=== PATIENT | male | born 1935 | race Caucasian/White ===

== ENCOUNTER → 2017-03-30 | Outpatient (CLI) | payer OTHER, MEDICARE ==
[~2017-03-30] MED LIST: CELLCEPT500 MG PO; COMBIVENT INH; DEMADEX20 MG PO; HYDROCHLOROTHIA25 M1 PO; HYTRIN 5 M5 MG/1 CA1 PO; LEVAQUIN 500 M500 M4 PO; LISINOPRIL10 MG PO; LISINOPRIL20 MG PO; NEURONTIN 300300 M1 PO; NORCO 5-325 TA1 EACH PO; PREDNISONE 10 M10 MG PO; PRILOSEC 20 MG20 MG PO; SIMVASTATIN80 MG PO; TYLENOL325 MG PO; UNICOMPLEX M TA1 TA1 PO; VITAMIN B-12500 MCG PO; VITAMIN E400 UNIT PO
[2017-03-30 10:31] VITALS: BP 165/83; BP 168/80
[2017-03-30 13:02] VITALS: BP 156/78; BP 165/83; BP 171/85
== END ==
LOC: OPONC 06:29
DX: N18.9 Chronic kidney disease, unspecified (principal); D63.1 Anemia in chronic kidney disease
CPT/HCPCS: 91030; 95113

== ENCOUNTER 2017-03-31 17:21 | Inpatient (IN) | payer OTHER, MEDICARE ==
[~2017-03-31] VITALS: Ht 167.6 cm; Wt 112.9 kg
--- NOTE | ~2017-03-31 | HC ---
[facility] [place] [address] CONSULTATION Name: MERY MAYA Room #: 454-P ADM IN M.R.#: [id number] Admission: 03/31/17 Attend Phys: Stew Jaffe MD Discharge: Date of : 35 Report #: [id number] THIS REPORT FOR: //name// CC: [facility] DATE OF SERVICE: 04/01/2017 REASON FOR CONSULTATION: Chronic kidney disease. HISTORY OF PRESENT ILLNESS: This 81-year-old gentleman with known chronic kidney disease, baseline creatinine of about 2 and cortical thinning on ultrasound. 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 After the transfusions, he became short of breath, this worsened, he had somewhat orthopnea. He came to the Emergency Room yesterday, was found to be in volume overload but also had lower lung infiltrates suggestive of possible infection and was admitted. PAST MEDICAL HISTORY: He has diastolic heart failure followed by Dr. Duong. He has had marked fluid overload, has been on high doses of diuretics. He has had previous knee replacements. He has the lymphoma as mentioned, has not had specific treatment for that, he is followed by Dr. Mcdermott. He has also had hypertension. HOME MEDICATIONS: Include gabapentin 300 mg b.i.d., lisinopril 40 mg daily, prednisone 10 mg daily, Protonix 20 mg daily, terazosin 10 mg at bedtime, torsemide 100 mg daily. FAMILY HISTORY: He has a brother with heart disease, previous bypass. SOCIAL HISTORY: No substantial cigarettes or alcohol. REVIEW OF SYSTEMS: GENERAL: He has been feeling reasonably well. EYES: His vision is okay. No trouble there. ENT: Hearing okay, swallows okay. No mouth sores or ulcers. ENDOCRINE: No diabetes or thyroid disease. RESPIRATORY: Easily short-winded with some orthopnea. CARDIAC: He has lower extremity swelling and a diagnosis of diastolic heart failure. No angina or coronary artery disease noted. GASTROINTESTINAL: Currently, no nausea, vomiting, diarrhea or bloody stools. GENITOURINARY: Reasonably good stream, some urinary frequency. NEUROLOGIC: Denies seizure, syncope, stroke or symptoms of peripheral neuropathy. SKIN: No skin rashes, lesions or ulcers currently. [address] [address] CONSULTATION Name: MERY MAYA Room #: 454-P [facility] IN M.R.#: [id number] Admission: 03/31/17 Attend Phys: Stew Jaffe MD Discharge: Date of : 35 Report #: [id number] PHYSICAL EXAMINATION: GENERAL: Elderly gentleman, reasonably comfortable giving a good history. Nasal cannula oxygen in place. SKIN: Unremarkable. SKELETAL: Somewhat obese. HEENT: Extraocular movements are full. Vision intact. No scleral icterus. Hearing intact. Mucous membranes moist. Tongue, buccal mucosa benign. NECK: Supple, no carotid bruits, no lymphadenopathy. CHEST: Shows diminished breath sounds at the bases. HEART: Regular but distant. ABDOMEN: Soft and nontender, without bruits, masses or organomegaly. EXTREMITIES: He has got 3+ peripheral edema. LABORATORY DATA: Urinalysis did show 3+ protein, some white cells and some red cells. Hemoglobin is 9, platelets only 102. Sodium 145, potassium 3.3, chloride 103, bicarbonate 29, BUN 41, creatinine 2.3. ASSESSMENT AND PLAN: 1. Chronic kidney disease. He has some cortical thinning, chronic kidney disease, but also somewhat of an active urinary sediment. For completeness, SONG, complements, ANCA, anti-GBL will all be measured. He may well also have paraprotein disorder. has a known B cell lymphoma and I will check for paraprotein. 2. Diastolic congestive heart failure with volume overload, diuresis indicated. 3. Pulmonary infiltrates with possible pneumonia versus transfusion reaction. 4. Hypertension. I will re-add some losartan. He is on terazosin. 5. Anemia. <ELECTRONICALLY SIGNED> By: Romero Richter MD 04/06/17 0735 [id number] Luciano Nieto MD /nt
--- NOTE | ~2017-03-31 | S ---
[facility] [place] [address] SURGICAL PATH RPT PROCEDURE Name: KVNG ROBIN Room #: 454-P ADM IN M.R.#: [id number] Admission: 03/31/17 Date of : 35 Discharge: Report #: [id number] Path Case #: [id number] PATHOLOGY REPORT COLLECTION DATE: 04/05/2017 RECEIVED DATE: 04/05/2017 SUBMITTING PHYS: Dr. Stew Jaffe OTHER PHYS: Dr. Derrick Sparrow SPECIMEN(S) RECEIVED: A.Lt renal inferior * * * * * * * * * * * * FINAL DIAGNOSIS: Please see next page for scanned image of report submitted by [employer]. (IUV:csd; d/t: 04/08/2017) PATHOLOGIST: Kirstie Palacios M.D. REPORT ELECTRONICALLY SIGNED BY: Kirstie Palacios M.D. DATE/TIME: 04/08/2017 12:31 * * * * * * * * * * * * GROSS PATHOLOGY: The specimen is received in formalin, labeled "Kvng Robin left renal inferior". Received are three needle cores of pale hoffmann soft tissue ranging in length from 0.3 to 1.0 cm, with each measuring 0.1 cm in diameter. The specimen is forwarded to an outside lab for further processing. Also received is a container of Bruce's fixative, labeled "Kvng Robin, left renal inferior". Received is a single needle core of pale hoffmann soft tissue measuring 1.3 cm in length by 0.1 cm in diameter. The specimen is for into an outside lab for direct immunofluorescence studies. (CAA; 04/05/2017) CLINICAL HISTORY: SOB INITIAL CPT CODE(S): A; 89235 [facility] [address], [place] [address] [facility] [address] [place] [address] SURGICAL PATH RPT PROCEDURE Name: KVNG ROBIN Room #: 454-P ADM IN M.R.#: [id number] Admission: 03/31/17 Date of : 35 Discharge: Report #: [id number] Path Case #: [id number] Technical services performed by [facility] at [address] [place] [address]. PROCEDURE REPORT (Order Date: 04/05/2017 00:00) INTERPRETATION: Please see next page for scanned image of report submitted by [employer] job service consultant pathologist, Luciano Nieto(IUV:amj; d/t: 04/08/2017) COMMENT: PATHOLOGIST: Kirstie Palacios M.D. REPORT ELECTRONICALLY SIGNED BY: Kirstie Palacios M.D. DATE/TIME: 04/08/2017 10:22 [facility] [address] [place] [address] PHONE: [phone] DIRECTOR: Ulysses Allison M.D. * * * END OF REPORT * * *
--- NOTE | ~2017-03-31 | S ---
[facility] [place] [address] SURGICAL PATH RPT PROCEDURE Name: KVNG ROBIN Wilmar Room #: 454-P [facility] IN M.R.#: [id number] Admission: 03/31/17 Date of : 35 Discharge: 04/09/17 Report #: [id number] Path Case #: [id number] PATHOLOGY REPORT COLLECTION DATE: 04/08/2017 RECEIVED DATE: 04/09/2017 SUBMITTING PHYS: Dr. Pantera Huddleston-Mynori OTHER PHYS: Dr. Derrick Jaffe SPECIMEN(S) RECEIVED: A.Lt renal bx * * * * * * * * * * * * FINAL DIAGNOSIS: Please see next page for scanned image of report submitted by [employer] pathologist, Shaw Maddox MD (SHA:ruddy; d/t: 04/14/2017) PATHOLOGIST: Hang Mott M.D. REPORT ELECTRONICALLY SIGNED BY: Hang Mott M.D. DATE/TIME: 04/14/2017 16:06 * * * * * * * * * * * * GROSS PATHOLOGY: The specimen is received in formalin labeled "Kvng Robin left renal biopsy". Received are four needle cores of pale hoffmann soft tissue ranging in length from 0.7 to 2.2 cm, with each measuring 0.1 cm in diameter. The specimen is forwarded to an outside laboratory for further processing. Also received is a container of Bruce's fixative, labeled "Kvng Robin left renal biopsy". Received are two needle cores of pink-hoffmann soft tissue measuring 0.7 and 1.4 cm in length, each measuring 0.1 cm in diameter. The specimen is forwarded to outside laboratory for direct immunofluorescence studies. (CAA; 04/09/2017) CLINICAL HISTORY: None provided INITIAL CPT CODE(S): A; 13689 Professional and Technical services performed by [employer], [address], [place] [address]. [place] [address] SURGICAL PATH RPT PROCEDURE Name: KVNG ROBIN Room #: 454-P [facility] IN .R.#: [id number] Admission: 03/31/17 Date of : 35 Discharge: 04/09/17 Report #: [id number] Path Case #: [id number] PROCEDURE REPORT (Order Date: 04/10/2017 00:00) COMMENT: Please see next page for scanned image of report submitted by [employer] new home sales consultant pathologist, Pantera Masrh MD (SHA:ruddy; d/t: 04/14/2017) PATHOLOGIST: Hang Mott M.D. REPORT ELECTRONICALLY SIGNED BY: Hang Mott M.D. DATE/TIME: 04/14/2017 12:44 [facility] [address] [place] [address] PHONE: [phone] DIRECTOR: Ulysses Allison M.D. * * * END OF REPORT * * *
--- NOTE | ~2017-03-31 | H ---
[facility] [place] [address] HISTORY AND PHYSICAL Name: MERY MAYA Room #: 454-P [facility] IN M.R.#: [id number] Admission: 03/31/17 Attend Phys: Stew Jaffe MD Discharge: 04/09/17 Date of : 35 Report #: [id number] THIS REPORT FOR: //name// CC: Stew Meza [facility] DATE OF SERVICE: 03/31/2017 CHIEF COMPLAINT: Shortness of breath and lower extremity swelling. HISTORY OF PRESENT ILLNESS: The patient is an 81-year-old man with multiple medical problems, who was recently diagnosed with congestive heart failure with diastolic dysfunction. The patient also has chronic anemia, transfusion dependent. The patient received 2 units of the PRBC transfusion yesterday. The patient states that he finished receiving blood around 4:00. The patient has had baseline shortness of breath and swelling for 1 month or so. Torsemide dose was increased lately. He went home in stable condition. On the same night, developed shortness of breath, which was slightly worse than baseline. He also reports cough. He had no orthopnea. This morning, cough has worsened, as well as the patient started having sputum production. He came to the Emergency Room. In the ER, his oxygen saturation was in mid 80s. ABG showed pO2 of 68, and normal pCO2. PH was 7.47. Chest x-ray showed bilateral lung infiltrates, as well as pleural effusion. The patient has low grade fever. PAST MEDICAL HISTORY: 1. Chronic kidney disease stage 3. 2. Recently diagnosed congestive heart failure with diastolic dysfunction. Last echo in 02/2016, with ejection fraction of 55%. 3. History of gastrointestinal bleed, details not specified. 4. Hypertension. 5. Dyslipidemia. 6. BPH. 7. Glaucoma. 8. Pancytopenia, transfusion dependent anemia. HOME MEDICATIONS: Gabapentin 300 mg b.i.d., lisinopril 40 mg a day, Protonix 20 mg a day, prednisone 10 mg a day, Zocor 80 mg a day, Hytrin 10 mg at night, torsemide 100 mg a day, vitamin E 400 units a day, and Tylenol as needed. FAMILY HISTORY: Reviewed and not pertinent to the patient's current condition. SOCIAL HISTORY: The patient currently does not smoke cigarettes and does not drink alcohol. [facility] [address] [place] [address] HISTORY AND PHYSICAL Name: MERY MAYA Room #: 454-P DIS IN M.R.#: [id number] Admission: 03/31/17 Attend Phys: Stew Jaffe MD Discharge: 04/09/17 Date of : 35 Report #: [id number] REVIEW OF SYSTEMS: As above in HPI section, all others negative. PHYSICAL EXAMINATION: GENERAL: The patient is an elderly man who is in no apparent distress. VITAL SIGNS: Blood pressure is 188/90, heart rate is 76, respiration is 18, temperature is 99.0. HEENT: Pupils are equal. Eye movements are normal. Oral mucosa is moist. Ear examination is deferred. NECK: The patient has mild JVD. RESPIRATORY: Respiratory sounds are diminished bilaterally. He has no wheezes or crackles. CARDIOVASCULAR: The patient has distant S1 and S2. He has regular rhythm and rate. GASTROINTESTINAL: Abdomen is soft, nondistended and nontender. Bowel sounds are present. The patient has no hepatomegaly or splenomegaly. MUSCULOSKELETAL: The patient has normal range of motion. He has 3+ pitting edema on lower extremities. SKIN: The patient has petechia on feet. Skin is dry and warm. LABORATORY DATA: ABG results as above in HPI section. Basic metabolic profile, electrolytes are essentially normal. Creatinine is 2.4, which is higher than baseline of 2.1 recently. Albumin is 2.9. Liver function tests are otherwise normal. On CBC, hemoglobin is 9.4, white count is 6.4, platelets 98. Chest x-ray shows bilateral infiltrates. On EKG, the patient has no acute findings. ASSESSMENT AND PLAN: An 81-year-old man who presents to the hospital with progressively worsening shortness of breath, bilateral lung infiltrates, cough, as well as swelling, and findings suggestive of volume overload. Given timing of the patient's symptoms, transfusion related acute lung injury is less likely. As noted, the patient received blood transfusion yesterday, that was finished around 4:00. He developed slight worsening of shortness of breath at night, before he went back, and his condition became worse this morning. 1. Suspected healthcare-associated pneumonia. The patient was hospitalized here for pneumonia in November of this year. He will be treated with broad-spectrum antibiotics. Breathing treatments will be continued. We will consult inspector aide for further evaluation. 2. Transfusion related acute lung injury. Less likely, but possible. Supportive care will be continued. 3. Congestive heart failure with diastolic dysfunction, new diagnosis. As noted, about a year ago, ejection fraction was 55%. We will repeat cardiac echo. Diuresis will be continued, and the patient will be reassessed. 4. Acute kidney injury on chronic kidney stage 3. Again, the patient is on large doses of torsemide, 100 mg a day. We will treat the patient with IV Lasix for now. Lisinopril will be discontinued, and the patient will be treated with hydralazine for hypertension. [facility] [place] [address] HISTORY AND PHYSICAL Name: MERY MAYA Room #: 454-P [facility] IN M.R.#: [id number] Admission: 03/31/17 Attend Phys: Stew Jaffe MD Discharge: 04/09/17 Date of : 35 Report #: [id number] 5. Hypertension, elevated blood pressure. We will treat with hydralazine for now. 6. Iatrogenic adrenal insufficiency, the patient is on chronic steroids, that was started on skin lesions. Details are not provided. The patient has been on prednisone since January of this year, and this is being tapered off. Now, the patient is on 10 mg a day. Given the patient's acute illness, will be IV steroids, with rapid taper off as the patient's condition improves. 7. Pancytopenia, suspected myelodysplastic syndrome. As noted, the patient has transfusion dependent anemia, and last blood transfusion was yesterday. 8. Deep venous thrombosis prophylaxis. We will use low dose subcutaneous Lovenox. <ELECTRONICALLY SIGNED> By: Stew Jaffe MD 04/11/17 1744 [id number] Stew Jaffe MD /nt
--- NOTE | ~2017-03-31 | HC ---
[facility] [place] [address] CONSULTATION Name: MERY MAYA Room #: 454-P ADM IN M.R.#: [id number] Admission: 03/31/17 Attend Phys: Stew Jaffe MD Discharge: Date of : 35 Report #: [id number] THIS REPORT FOR: //name// CC: Stew Sparrow PRIMARY PHYSICIAN: Derrick Sparrow MD REASON FOR CONSULTATION: Dyspnea and hypoxia. HISTORY OF PRESENT ILLNESS: The patient is an 81-year-old white male who was brought to the emergency room with dyspnea. He has been admitted for possible transfusion related acute lung injury. A pulmonary consultation was requested. The patient has been recently found to have lymphoma following a bone marrow biopsy. He has now received chemotherapy. He has been followed by Dr. Mcdermott. Prior to that, he was found to be cytopenic, which led to the bone marrow biopsy. The patient has been dealing with anemia. Yesterday, he was given 2 units of packed RBCs. He felt fine and was subsequently sent home. Later on that evening, he developed increasing dyspnea and presented to emergency room. Chest x-ray revealed small bilateral pleural effusions, slightly greater on the left; cardiomegaly; small lung volumes. The patient, aside from dyspnea, denies any febrile illness, chills, chest pain, or productive cough. PAST MEDICAL HISTORY: As mentioned above, lymphoma from a recent bone marrow biopsy; cytopenia with anemia, undergone recent transfusion; diastolic dysfunction; recent echocardiogram performed in February 2016 showed ejection fraction of 55%, he is going to get another echocardiogram at this moment; chronic kidney disease; history of GI bleed; hypertension; dyslipidemia; and benign prostatic hypertrophy. PAST SURGICAL HISTORY: As mentioned above. It also includes bilateral knee replacement, bladder biopsy, hemorrhoidectomy, and multiple skin cancer resections. ALLERGIES: None to medications. HOME MEDICATIONS: Include vitamin E supplements, Tylenol, simvastatin, Neurontin, Hytrin, omeprazole, multivitamins, Demadex, prednisone 10 mg once a day, and lisinopril. FAMILY HISTORY: Notable for CVA in father who at the age of 78 and [facility] [address] [place] [address] CONSULTATION Name: MERY MAYA Room #: 454-P [facility] IN .R.#: [id number] Admission: 03/31/17 Attend Phys: Stew Jaffe MD Discharge: Date of : 35 Report #: [id number] mother at the age of 79, she had diabetes. SOCIAL HISTORY: and lives with his , again no history of tobacco or alcohol use. REVIEW OF SYSTEMS: As mentioned above. Otherwise notable for edema involving the lower extremities for the past month. Otherwise, 10-point system review negative. PHYSICAL EXAMINATION: GENERAL: He is awake, alert, in no apparent distress. VITAL SIGNS: Temperature is 97.5 degrees Fahrenheit, pulse is 90, respiratory rate is 20, blood pressure 168/90 mmHg, and saturation 94%. HEENT: Normocephalic, atraumatic. NECK: Supple, without lymphadenopathy or thyromegaly. CHEST: Breath sounds are fair, few scattered crackles in the bases. CARDIOVASCULAR: Heart sounds are distant. No obvious murmurs or gallops. Pulses are 2+/4+ bilaterally. ABDOMEN: Obese, soft, nontender, no organomegaly or masses felt. GENITOURINARY: Deferred. RECTAL: Deferred. EXTREMITIES: Remarkable for 2+/4+ bilateral pretibial edema bilaterally. No cyanosis or clubbing. LABORATORY DATA: Chest x-ray as mentioned above is showing small bilateral pleural effusions, cardiomegaly, mild atelectasis, this is new from his prior chest x-rays. Sodium 145, potassium 3.3, chloride 103, CO2 is 29, creatinine is 2.3, BUN is 40. His baseline creatinine appears to be around 2. Albumin 2.9. Arterial blood gas revealed pH 7.47, pCO2 of 42, pO2 of 68 on 3 liters of O2. WBC is 6400, platelets are reduced at 98,000, no evidence of bandemia. IMPRESSION: 1. Acute hypoxic respiratory failure in this 81-year-old white male. Chest x-ray shows small bilateral pleural effusions along with cardiomegaly. He has edema by examination, present over the past month. He received 2 units of packed red blood cells yesterday. The patient was without febrile illness or chills, etc. Etiology is likely related to volume overload with his recent blood transfusion. Transfusion related acute lung injury is felt to be less likely. Pneumonia is possible, though also less likely given the absence of febrile illness, leukocytosis, or bandemia, no productive cough. 2. Recent diagnosis of lymphoma via bone marrow biopsy. The patient has had trouble with chronic anemia and cytopenia. 3. Suspect acute on chronic diastolic heart failure, echocardiogram is being performed at present. Prior echocardiogram showed ejection fraction of 55%. Agree with diuresis. [address] [address] CONSULTATION Name: MERY MAYA Room #: 454-P ADM IN M.R.#: [id number] Admission: 03/31/17 Attend Phys: Stew Jaffe MD Discharge: Date of : 35 Report #: [id number] 4. Acute kidney injury on chronic kidney disease. His baseline creatinine has been around 2, currently is 2.3. We will need to be cautious with the use of RAS inhibitors along with diuresis. RECOMMENDATION: Agree with current care including broad-spectrum antibiotics and diuretics. If the patient continues to be afebrile and chest x-ray shows improvements, I could consider discontinuing antibiotics. Follow renal function closely given his chronic kidney disease while being diuresed. DVT and GI prophylaxis will be addressed. Thank you for this consultation. <ELECTRONICALLY SIGNED> By: Chapo Lerner MD 04/02/17 1135 1107 1411 Chapo Lerner MD /nt
--- NOTE | ~2017-03-31 | 2DMMODE ---
[facility] [place] [address] 2 D/M-MODE ECHOCARDIOGRAM Name: MERY MAYA Wilmar Room #: 454-P ADM IN .R.#: [id number] Admission: 03/31/17 Attend Phys: Stew Jaffe Discharge: Date of : 35 Date of Service: 04/01/17 1202 Report #: [id number] THIS REPORT FOR: //name// APPROVED REPORT Study performed: 04/01/2017 10:35:02 EXAM: Comprehensive 2D, Doppler, and color-flow Echocardiogram Patient Location: Bedside Room #: 454 Blood Pressure: 175/94 mmHg HR: 91 bpm Other Information Study Quality: Good Indications Congestive Heart Failure Dyspnea Hx HRN, DM 2D Dimensions RVDd: 48.08 mm LVEF(%): 43.34 (>50%) IVSd: 13.45 (7-11mm) LVOT Diam: 21.05 (18-24mm) LVDd: 52.02 mm PWd: 12.99 (7-11mm) Ascending Ao: 37.16 (22-36mm) LVDs: 40.82 (25-40mm) Aortic Root: 39.74 mm Will's LVEF: 43.34 % Volumes Left Atrial Volume (Systole) Single Plane 4CH: 87.89 mL Single Plane 2CH: 76.21 mL LA ESV Index: 41.00 mL/m2 Aortic Valve AoV Peak Sreekanth.: 1.64 m/s AO Peak Gr.: 10.77 mmHg LVOT Max P.02 mmHg LVOT Max V: 1.23 m/s SHAW Vmax: 2.60 cm2 Mitral Valve [facility] [address] [place] [address] 2 D/M-MODE ECHOCARDIOGRAM Name: MERY MAYA Room #: 454-P [facility] IN [facility]#: [id number] Admission: 03/31/17 Attend Phys: Stew Jaffe Discharge: Date of : 35 Date of Service: 04/01/17 1202 Report #: [id number] E/A Ratio: 0.6 MV Decel. Time: 135.93 ms MV E Max Sreekanth.: 0.74 m/s MV A Sreekanth.: 1.23 m/s MV PHT: 39.42 ms IVRT: 83.04 ms Pulmonary Valve PV Peak Sreekanth.: 1.01 m/s PV Peak Gr.: 4.06 mmHg Pulmonary Vein P Vein S: 0.85 m/s P Vein A: 0.44 m/s P Vein D: 0.39 m/s P Vein S/D Ratio: 2.18 Tricuspid Valve TR Peak Sreekanth.: 3.03 m/s RAP Estimate: 5.00 mmHg TR Peak Gr.: 36.67 mmHg RVSP: 42.00 mmHg Left Ventricle The left ventricle is normal size. Mild concentric left ventricular hypertrophy. The left ventricular systolic function is normal. The left ventricular ejection fraction is within the normal range. LVEF is 50-55%. Grade I - abnormal relaxation pattern. Right Ventricle The right ventricle is normal size. The right ventricular systolic function is normal. Atria Left atrium is moderately dilated. Right atrium is mildly dilated. Aortic Valve Aortic valve is calcified. Trace aortic regurgitation. There is no aortic valvular stenosis. Mitral Valve There is mitral annular calcification. Mild mitral regurgitation. No evidence of mitral valve stenosis. Tricuspid Valve The tricuspid valve is normal in structure. There is mild tricuspid regurgitation. The right atrial pressure is estimated at 5 mmHg. There is moderate pulmonary hypertension. Estimated PAP of [address] [address] 2 D/M-MODE ECHOCARDIOGRAM Name: EMRY MAYA Room #: 454-P [facility] IN .R.#: [id number] Admission: 03/31/17 Attend Phys: Stew Jaffe Discharge: Date of : 35 Date of Service: 04/01/17 1202 Report #: [id number] Pulmonic Valve The pulmonary valve is normal in structure. Trace pulmonic regurgitation. Great Vessels Aortic root is mildly dilated. IVC is normal in size and collapses >50% with inspiration. Pericardium There is no pericardial effusion. Right pleural effusion noted. <Conclusion> The left ventricle is normal size. LVEF is 50-55%. Left atrium is moderately dilated. Right atrium is mildly dilated. Aortic valve is calcified. Trace aortic regurgitation. There is mitral annular calcification. There is mitral annular calcification. Mild mitral regurgitation. The tricuspid valve is normal in structure. There is mild tricuspid regurgitation. The right atrial pressure is estimated at 5 mmHg. There is moderate pulmonary hypertension. Estimated PAP of 42 mmHg. Trace pulmonic regurgitation. Aortic root is mildly dilated. <ELECTRONICALLY SIGNED> By: Timothy Ridley MD 04/01/17 1202 01 01 Timothy Ridley MD /INF
--- NOTE | ~2017-03-31 | HC ---
[facility] [place] [address] CONSULTATION Name: MERY MAYA Room #: 454-P ADM IN M.R.#: [id number] Admission: 03/31/17 Attend Phys: Stew Jaffe MD Discharge: Date of : 35 Report #: [id number] THIS REPORT FOR: //name// CC: Stew Sparrow REASON FOR CONSULTATION: Shortness of breath. HISTORY OF PRESENT ILLNESS: The patient is an 81-year-old gentleman who is the patient of Dr. Derrick Sparrow. He has a history of hypertension, diabetes, chronic kidney disease and recent progressive shortness of breath with lower extremity edema, abdominal bloating and orthopnea. His history comes from interview with the patient as well as review of hospitalization and outpatient records. 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 He was hospitalized in November with acute kidney injury at which time his evaluation included a ventilation perfusion scan, which demonstrated low probability for pulmonary embolism, a renal Doppler which showed bilateral renal cortical atrophy. His last echocardiogram in February, 1 year ago demonstrated normal left ventricular systolic function and absent valvular heart disease. He has been recently found to be anemic, which initially responded to iron infusions, although anemia recurred. He received 2 units of packed cells several days ago with 80 mg of IV Lasix between the 2 units for a hemoglobin of around 7.0. He has also undergone recent bone marrow biopsy demonstrating indolent lymphoma. Following his blood transfusion, he reports increasing shortness of breath. Home oxygen saturations were in the mid to upper 70s, presented to the emergency department where his hemoglobin was 9.0 and proBNP 21,000. He denies chest heaviness or pressure. He is limited due to exertional breathlessness. No history of palpitations, near syncope or syncope. ALLERGIES: No known drug allergies. MEDICATIONS: Include torsemide, simvastatin 40 mg daily, lisinopril 40 mg daily, prednisone 10 mg daily, Neurontin 300 mg twice daily. PAST MEDICAL HISTORY: Medical records have been reviewed and include a history of hypertension, diabetes, dyslipidemia, nonischemic stress study in February of 2016 with normal ejection fraction, BPH, autoimmune polyneuropathy. He has been on CellCept back in 2013, hiatal hernia, basal cell excision, left knee replacement, right knee replacement. SOCIAL HISTORY: He has never been a smoker. He is , retired from customer service. [address] [address] CONSULTATION Name: MERY MAYA Room #: 454-P [facility] IN [facility]#: [id number] Admission: 03/31/17 Attend Phys: Stew Jaffe MD Discharge: Date of : 35 Report #: [id number] FAMILY HISTORY: Father at age 78 of stroke. Mother at 79 from diabetes. REVIEW OF SYSTEMS: All systems negative except as that noted above. PHYSICAL EXAMINATION: GENERAL: A pleasant gentleman who is mildly dyspneic. VITAL SIGNS: Blood pressure is 175/94, heart rate of 93, temperature is 98.3 degrees, 5 feet 6 inches tall, 249 pounds. HEENT: There are neither xanthelasma, subcutaneous xanthomata, oral mucosal or digital cyanosis or kyphoscoliosis present. CHEST: Reveals diminished breath sounds at both bases. CARDIOVASCULAR: Regular rate and rhythm with normal S1, S2. Jugular venous pressure is elevated. ABDOMEN: Soft, obese and nontender. EXTREMITIES: Reveal 2+ pitting edema. Radial pulses are 2+. NEUROLOGIC: Alert with a nonfocal exam. LABORATORY DATA: Sodium is 145, potassium 2.3. White count 4.9, hemoglobin 9.0, hematocrit 26, platelet count 102. Chest x-ray demonstrates bilateral lung infiltrates and atelectasis. EKG, sinus rhythm, no acute ST or T-wave changes. IMPRESSION: 1. Acute on chronic diastolic heart failure. 2. Anemia. 3. Chronic kidney disease. 4. Polyneuropathy. 5. Recently diagnosed B-cell lymphoma. 6. Pancytopenia. RECOMMENDATIONS: 1. Echocardiogram with Doppler. 2. Intravenous diuretic therapy. 3. Salt restriction. 4. Hold lisinopril for now given advanced kidney disease. I have discussed these issues with the patient and Dr. Sparrow. Further thoughts will be forthcoming based on full completion of the database. I do not suspect an interval ischemic event from his last assessment about a year ago. <ELECTRONICALLY SIGNED> By: Hugo Duong MD, [facility] 04/02/17 0824 0722 1315 Hugo Duong MD, [facility] /nt
--- NOTE | ~2017-03-31 | EKG ---
[place] [address] [facility] [address] ELECTROCARDIOGRAM REPORT Name: MERY MAYA Room #: 454-P ADM IN M.R.#: [id number] Admission: 03/31/17 Attend Phys: Stew Jaffe MD Discharge: Date of : 35 Report #: [id number] THIS REPORT FOR: //name// [facility] ED Test Date: 2017-03-31 Test Time: 17:50:50 Pat Name: MERY MAYA Department: Room: [facility] Gender: M Credit Review Analyst: marj : 1935 Requested By: Luis Felipe Smith Order Number: [id number] MD: Hugo Duong Measurements Intervals [place] Rate: 82 P: 15 ME: 172 QRS: 6 QRSD: 95 T: 31 QT: 363 QTc: 424 Interpretive Statements Sinus rhythm Supraventricular bigeminy Nonspecific ST and T-wave abnormality Compared to ECG 12/21/2016 10:28:45 Atrial premature complex(es) now present T-wave abnormality now present Ventricular premature complex(es) no longer present Electronically Signed On 04-01-2017 7:45:57 CDT by Hugo Duong [email or web address] <ELECTRONICALLY SIGNED> By: Hugo Duong MD, [facility] 04/01/17 0745 1750 1750 Hugo Duong MD, [facility] /EPI
[2017-03-31 17:32] VITALS: BP 178/90
[2017-03-31 17:55] LABS: ABSOLUTE NEUTROPHILS 5.2 thou/uL (1.4-8.2); BASOPHILS 0.4 % (0.0-2.0); EOSINOPHILS 1.6 % (0.0-3.0); HEMATOCRIT 27.5 % (42.0-52.0); HEMOGLOBIN 9.4 gm/dL (14.0-18.0); LYMPHOCYTES 9.5 % (24.0-44.0); MANUAL DIFF NO; MCH 30.5 pg (26.0-34.0); MCHC 34.1 g/dL (28.0-37.0); MCV 89.4 fL (80.0-100.0); PLATELET COUNT 98 thou/uL (150-400); POLYS 80.5 % (36.0-66.0); RBC 3.08 mil/uL (4.50-6.00); RDW 15.2 % (10.5-14.5); WBC 6.4 thou/uL (4.0-11.0)
[2017-03-31 17:57] LABS: ABG SAMPLE TYPE ARTERIAL; HCO3 30.2 mmol/L (22.0-26.0); LACTATE 1.07 mmol/L (0.5-2.0); O2(CT) 12.9 mL/dL (15.0-23.0); O2Hb 91.5 % (92.0-98.0); PCO2 42.2 mmHg (35.0-45.0); PO2 68.8 mmHg (80.0-100.0); pH 7.472 (7.360-7.450); sO2 94.7 % (92.0-98.0); tCO2 31.5 mmol/L (24.0-30.0)
[2017-03-31 18:00] LABS: STICK SITE R.RADIAL
[2017-03-31 18:07] LABS: CALCIUM 8.3 mg/dL (8.5-10.1); CREATININE 2.4 mg/dL (0.7-1.3); POTASSIUM 3.4 mmol/L (3.5-5.1)
[2017-03-31 18:18] LABS: ALBUMIN 2.9 g/dL (3.4-5.0); TOTAL BILIRUBIN 0.9 mg/dL (<0.1-1.0); TOTAL PROTEIN 5.6 g/dL (6.4-8.2); TROPONIN-I 0.05 ng/mL (<0.04-0.07)
[2017-03-31 20:16] VITALS: BP 175/87
[2017-03-31 20:30] VITALS: BP 185/103
[2017-03-31 23:40] VITALS: BP 175/100
[2017-04-01] VITALS (7 sets, daily range): BP systolic 155–175; BP diastolic 75–102
[2017-04-01 00:40] LABS: URINE BILIRUBIN NEGATIVE (Negative); URINE BLOOD 3+ (Negative); URINE COLOR YELLOW; URINE GLUCOSE-RANDOM* NEGATIVE (Negative); URINE KETONES NEGATIVE (Negative); URINE LEUKOCYTES-REFLEX NEGATIVE (Negative); URINE PROTEIN (DIPSTICK) 3+ (Negative); URINE UROBILINOGEN 0.2 E.U./dl (0.2-1.0)
[2017-04-01 00:53] LABS: CASTS None Seen /LPF (None Seen); SQUAMOUS None Seen /LPF (0-3)
[2017-04-01 00:54] LABS: COARSE GRANULAR CASTS 0-3 Few /LPF (None Seen); CRYSTALS None Seen /LPF (None Seen); URINE RBC >20 Many /HPF (0-2); URINE WBC-REFLEX 6-15 Few /HPF (0-5)
[2017-04-01 05:53] LABS: HEMATOCRIT 26.6 % (42.0-52.0); MCH 30.5 pg (26.0-34.0); MCHC 33.8 g/dL (28.0-37.0); MCV 90.3 fL (80.0-100.0); PLATELET COUNT 102 thou/uL (150-400); RBC 2.94 mil/uL (4.50-6.00); RDW 15.2 % (10.5-14.5); WBC 4.9 thou/uL (4.0-11.0)
[2017-04-01 06:05] LABS: CALCIUM 8.3 mg/dL (8.5-10.1); CREATININE 2.3 mg/dL (0.7-1.3); POTASSIUM 3.3 mmol/L (3.5-5.1)
[2017-04-01 06:09] LABS: MANUAL DIFF YES
[2017-04-01 08:47] LABS: ABSOLUTE NEUTROPHILS 4.7 thou/uL (1.4-8.2); PLATELET ESTIMATE NORMAL; TOTAL CELL COUNT 100
[2017-04-01 23:10] LABS: URINE CREATININE-RANDOM* 44.5 mg/dL (Not Estab.); URINE PROTEIN-RANDOM* 291.8 mg/dL (Not Estab.)
[2017-04-02 04:05] VITALS: BP 173/92
[2017-04-02 07:13] VITALS: BP 163/84
[2017-04-02 08:51] LABS: HEMATOCRIT 27.4 % (42.0-52.0); HEMOGLOBIN 9.3 gm/dL (14.0-18.0); MCH 30.1 pg (26.0-34.0); MCHC 33.7 g/dL (28.0-37.0); MCV 89.4 fL (80.0-100.0); RBC 3.07 mil/uL (4.50-6.00); RDW 15.8 % (10.5-14.5); WBC 6.6 thou/uL (4.0-11.0)
[2017-04-02 08:52] LABS: MANUAL DIFF YES
[2017-04-02 09:00] LABS: CALCIUM 8.6 mg/dL (8.5-10.1); CREATININE 2.7 mg/dL (0.7-1.3); PHOSPHORUS 5.7 mg/dL (2.5-4.9); POTASSIUM 3.6 mmol/L (3.5-5.1)
[2017-04-02 09:15] LABS: ABSOLUTE NEUTROPHILS 6.1 thou/uL (1.4-8.2); TOTAL CELL COUNT 100
[2017-04-02 09:16] LABS: ANISOCYTOSIS 1+; PLATELET COUNT 94 thou/uL (150-400)
[2017-04-02 11:27] VITALS: BP 155/94
[2017-04-02 13:13] LABS: ANTI-DNA SCREEN 2 IU/mL (0-9); ANTI-RNP <0.2 AI (0.0-0.9)
[2017-04-02 15:18] VITALS: BP 187/98
[2017-04-02 16:08] LABS: KAPPA FREE LIGHT CHAINS 246.19 mg/L (3.30-19.40); KAPPA/LAMBDA RATIO 22.14 (0.26-1.65); LAMBDA FREE LIGHT CHAINS 11.12 mg/L (5.71-26.30)
[2017-04-02 19:11] VITALS: BP 153/71
[2017-04-03 04:12] VITALS: BP 153/86
[2017-04-03 05:04] LABS: HEMATOCRIT 27.6 % (42.0-52.0); HEMOGLOBIN 9.3 gm/dL (14.0-18.0); MCH 30.4 pg (26.0-34.0); MCHC 33.8 g/dL (28.0-37.0); MCV 89.9 fL (80.0-100.0); PLATELET COUNT 94 thou/uL (150-400); RBC 3.07 mil/uL (4.50-6.00); RDW 15.9 % (10.5-14.5); WBC 7.7 thou/uL (4.0-11.0)
[2017-04-03 05:15] LABS: MANUAL DIFF YES
[2017-04-03 05:18] LABS: APTT 17.2 Seconds (24.5-32.8); PROTIME 10.8 Seconds (9.3-11.4)
[2017-04-03 05:20] LABS: ALBUMIN 2.9 g/dL (3.4-5.0); CALCIUM 8.5 mg/dL (8.5-10.1); CREATININE 2.9 mg/dL (0.7-1.3); PHOSPHORUS 5.5 mg/dL (2.5-4.9); POTASSIUM 4.5 mmol/L (3.5-5.1)
[2017-04-03 07:26] VITALS: BP 149/89
[2017-04-03 08:20] LABS: ABSOLUTE NEUTROPHILS 7.5 thou/uL (1.4-8.2); TOTAL CELL COUNT 100
[2017-04-03 08:21] LABS: ANISOCYTOSIS 1+; POIKILOCYTOSIS SLIGHT; POLYCHROMASIA OCCASIONAL
[2017-04-03 11:39] VITALS: BP 173/106
[2017-04-03 16:37] VITALS: BP 181/78
[2017-04-03 19:29] VITALS: BP 172/79
[2017-04-04 03:57] VITALS: BP 159/85
[2017-04-04 05:29] LABS: HEMATOCRIT 27.7 % (42.0-52.0); HEMOGLOBIN 9.4 gm/dL (14.0-18.0); MCH 30.5 pg (26.0-34.0); MCHC 33.9 g/dL (28.0-37.0); MCV 89.9 fL (80.0-100.0); RBC 3.08 mil/uL (4.50-6.00); RDW 15.8 % (10.5-14.5); WBC 6.1 thou/uL (4.0-11.0)
[2017-04-04 05:47] LABS: CALCIUM 8.7 mg/dL (8.5-10.1); CREATININE 2.9 mg/dL (0.7-1.3); PHOSPHORUS 6.2 mg/dL (2.5-4.9); POTASSIUM 4.3 mmol/L (3.5-5.1)
[2017-04-04 08:44] VITALS: BP 144/85
[2017-04-04 12:31] VITALS: BP 169/70
[2017-04-04 15:56] VITALS: BP 170/65
[2017-04-04 20:00] VITALS: BP 137/71
[2017-04-05] VITALS (10 sets, daily range): BP systolic 108–165; BP diastolic 51–92
[2017-04-05 04:20] LABS: HEMOGLOBIN 9.2 gm/dL (14.0-18.0); MCH 30.6 pg (26.0-34.0); MCHC 33.9 g/dL (28.0-37.0); MCV 90.4 fL (80.0-100.0); RBC 2.99 mil/uL (4.50-6.00); RDW 15.5 % (10.5-14.5); WBC 5.6 thou/uL (4.0-11.0)
[2017-04-05 04:38] LABS: ALBUMIN 2.9 g/dL (3.4-5.0); CALCIUM 8.5 mg/dL (8.5-10.1); CREATININE 2.9 mg/dL (0.7-1.3); POTASSIUM 4.1 mmol/L (3.5-5.1)
[2017-04-06 04:22] VITALS: BP 160/87
[2017-04-06 05:53] LABS: HEMATOCRIT 27.2 % (42.0-52.0); HEMOGLOBIN 9.2 gm/dL (14.0-18.0); MCH 30.7 pg (26.0-34.0); MCHC 33.9 g/dL (28.0-37.0); MCV 90.5 fL (80.0-100.0); RDW 15.7 % (10.5-14.5); WBC 7.5 thou/uL (4.0-11.0)
[2017-04-06 06:11] LABS: ALBUMIN 2.9 g/dL (3.4-5.0); CALCIUM 8.7 mg/dL (8.5-10.1); CREATININE 3.2 mg/dL (0.7-1.3); PHOSPHORUS 7.3 mg/dL (2.5-4.9); POTASSIUM 4.2 mmol/L (3.5-5.1)
[2017-04-06 08:36] VITALS: BP 152/89
[2017-04-06 12:15] VITALS: BP 136/69
[2017-04-06 13:09] LABS: A/G RATIO 1.3 (0.7-1.7); ALBUMIN 2.8 g/dL (2.9-4.4); ALPHA 1 0.4 g/dL (0.0-0.4); ALPHA 2 0.6 g/dL (0.4-1.0); BETA 0.8 g/dL (0.7-1.3); GAMMA 0.3 g/dL (0.4-1.8); M-SPIKE Not Observed g/dL (Not Observed)
[2017-04-06 16:01] VITALS: BP 154/76
[2017-04-06 17:08] LABS: c-ANCA <1:20 titer (Neg:<1:20); p-ANCA <1:20 titer (Neg:<1:20)
[2017-04-06 19:37] VITALS: BP 134/70
[2017-04-07 05:05] VITALS: BP 113/83
[2017-04-07 06:37] LABS: HEMATOCRIT 25.3 % (42.0-52.0); HEMOGLOBIN 8.7 gm/dL (14.0-18.0); MCH 30.9 pg (26.0-34.0); MCHC 34.2 g/dL (28.0-37.0); MCV 90.5 fL (80.0-100.0); RBC 2.8 mil/uL (4.50-6.00); RDW 15.7 % (10.5-14.5); WBC 8.1 thou/uL (4.0-11.0)
[2017-04-07 06:52] LABS: ALBUMIN 2.7 g/dL (3.4-5.0); CALCIUM 8.6 mg/dL (8.5-10.1); CREATININE 3.2 mg/dL (0.7-1.3); PHOSPHORUS 8.3 mg/dL (2.5-4.9); POTASSIUM 4.5 mmol/L (3.5-5.1)
[2017-04-07 07:19] VITALS: BP 132/71
[2017-04-07 11:00] VITALS: BP 142/77
[2017-04-07 15:07] VITALS: BP 135/55
[2017-04-07 20:07] VITALS: BP 120/51
[2017-04-08] VITALS (14 sets, daily range): BP systolic 104–167; BP diastolic 45–83
[2017-04-08 06:15] LABS: HEMATOCRIT 23.6 % (42.0-52.0); MCH 30.8 pg (26.0-34.0); MCHC 33.8 g/dL (28.0-37.0); MCV 91.1 fL (80.0-100.0); PLATELET COUNT 87 thou/uL (150-400); RBC 2.59 mil/uL (4.50-6.00); RDW 15.8 % (10.5-14.5); WBC 7.6 thou/uL (4.0-11.0)
[2017-04-08 06:20] LABS: MANUAL DIFF YES
[2017-04-08 06:31] LABS: ALBUMIN 2.6 g/dL (3.4-5.0); CALCIUM 8.4 mg/dL (8.5-10.1); CREATININE 3.3 mg/dL (0.7-1.3); PHOSPHORUS 7.6 mg/dL (2.5-4.9); POTASSIUM 4.7 mmol/L (3.5-5.1)
[2017-04-08 07:35] LABS: ABSOLUTE NEUTROPHILS 6.4 thou/uL (1.4-8.2); METAMYELOCYTES 2 %; TOTAL CELL COUNT 100
[2017-04-08 07:36] LABS: ANISOCYTOSIS 1+
[2017-04-08 07:37] LABS: OVALOCYTES 1+
[2017-04-09 04:00] VITALS: BP 131/66
[2017-04-09 05:52] LABS: HEMATOCRIT 22.4 % (42.0-52.0); HEMOGLOBIN 7.6 gm/dL (14.0-18.0); MCH 30.4 pg (26.0-34.0); MCHC 33.8 g/dL (28.0-37.0); RBC 2.49 mil/uL (4.50-6.00); WBC 5.8 thou/uL (4.0-11.0)
[2017-04-09 06:05] LABS: CALCIUM 8.2 mg/dL (8.5-10.1); CREATININE 3.4 mg/dL (0.7-1.3); POTASSIUM 4.5 mmol/L (3.5-5.1)
[2017-04-09 07:29] VITALS: BP 146/69
[2017-04-09 10:35] VITALS: BP 146/69
[2017-04-09 11:31] VITALS: BP 129/59
[2017-04-09 12:05] VITALS: BP 146/69
[2017-04-09] MEDS ORDERED: ALDACTONE25 MG PO (13:26)
[2017-04-09] MEDS ORDERED: COZAAR 50 MG TA50 M1 PO (13:26)
[2017-04-09] MEDS ORDERED: AUGMENTIN 875875 MG PO (13:27)
[2017-04-09] MEDS ORDERED: PREDNISONE 10 M10 MG PO (13:27)
[2017-04-09 13:59] VITALS: BP 146/69
== END 2017-04-09 14:46 | disposition home or self-care (01) | DRG 177 ==
LOC: ER 17:21 → 4W 18:43 → EROBS 18:43 → 4W 20:12
PROVIDERS: Hospitalist; Internal Medicine Endocrinology, Diabetes & Metabolism; Internal Medicine Nephrology; Physician Assistant
PROC: 0TB13ZX Excision of Left Kidney, Percutaneous Approach, Diagnostic (ICD-10-PCS; principal; 2017-04-08)
PROC: BT42ZZZ Ultrasonography of Left Kidney (ICD-10-PCS; principal; 2017-04-08)
DX: J15.6 Pneumonia due to other Gram-negative bacteria (principal); I50.33 Acute on chronic diastolic (congestive) heart failure; J96.01 Acute respiratory failure with hypoxia; I13.0 Hypertensive heart and chronic kidney disease with heart failure and stage 1 through stage 4 chronic kidney disease, or unspecified chronic kidney disease; N17.9 Acute kidney failure, unspecified; N18.4 Chronic kidney disease, stage 4 (severe); J95.84 Transfusion-related acute lung injury (TRALI); D61.818 Other pancytopenia; E27.3 Drug-induced adrenocortical insufficiency; C85.10 Unspecified B-cell lymphoma, unspecified site; Z96.653 Presence of artificial knee joint, bilateral; K21.9 Gastro-esophageal reflux disease without esophagitis; E11.22 Type 2 diabetes mellitus with diabetic chronic kidney disease; E78.5 Hyperlipidemia, unspecified; N40.0 Benign prostatic hyperplasia without lower urinary tract symptoms; E11.42 Type 2 diabetes mellitus with diabetic polyneuropathy; H40.9 Unspecified glaucoma; R80.9 Proteinuria, unspecified; R33.9 Retention of urine, unspecified; R31.9 Hematuria, unspecified; Z82.49 Family history of ischemic heart disease and other diseases of the circulatory system; Z79.899 Other long term (current) drug therapy; Z82.3 Family history of stroke; Z83.3 Family history of diabetes mellitus
CPT/HCPCS: 10045; 91030; 95113

== ENCOUNTER → 2017-04-28 | Outpatient (CLI) | payer OTHER, MEDICARE ==
[~2017-04-28] VITALS: Ht 167.6 cm; Wt 104.8 kg
[~2017-04-28] MED LIST changes: +ALDACTONE25 MG PO; +AUGMENTIN 875875 MG PO; +COZAAR 50 MG TA50 M1 PO; +ZESTRIL40 MG PO
[2017-04-28 07:27] VITALS: BP 163/72
[2017-04-28 07:43] LABS: HEMATOCRIT 20.9 % (42.0-52.0); MCH 30.3 pg (26.0-34.0); MCHC 33.6 g/dL (28.0-37.0); MCV 90.3 fL (80.0-100.0); RBC 2.31 mil/uL (4.50-6.00); RDW 16.2 % (10.5-14.5); WBC 6.2 thou/uL (4.0-11.0)
[2017-04-28 07:56] LABS: CALCIUM 8.2 mg/dL (8.5-10.1); CREATININE 5.3 mg/dL (0.7-1.3); POTASSIUM 4.6 mmol/L (3.5-5.1)
[2017-04-28 08:00] LABS: APTT 22.8 Seconds (24.5-32.8); PROTIME 10.7 Seconds (9.3-11.4)
== END ==
LOC: SPEC 06:41
PROVIDERS: Radiology Vascular & Interventional Radiology
DX: C85.90 Non-Hodgkin lymphoma, unspecified, unspecified site (principal); I10 Essential (primary) hypertension; K21.9 Gastro-esophageal reflux disease without esophagitis; K44.9 Diaphragmatic hernia without obstruction or gangrene; I50.9 Heart failure, unspecified; K28.4 Chronic or unspecified gastrojejunal ulcer with hemorrhage; Z96.653 Presence of artificial knee joint, bilateral; Z85.828 Personal history of other malignant neoplasm of skin

== ENCOUNTER 2018-02-09 16:48 | Inpatient (IN) | payer OTHER, MEDICARE ==
[~2018-02-09] VITALS: Ht 167.6 cm; Wt 104.1 kg
--- NOTE | ~2018-02-09 | HC ---
[facility] [place] [address] CONSULTATION Name: MERY MAYA Room #: 236-P ADM IN M.R.#: [id number] Admission: 02/09/18 Attend Phys: Db Grewal MD Discharge: Date of : 35 Report #: [id number] THIS REPORT FOR: //name// CC: Db Sparrow MD DATE OF SERVICE: 02/10/2018 ATTENDING PHYSICIAN: Poli Paiz MD.. CONSULTATION REQUESTED BY: Dr. Burch. REASON FOR CONSULTATION: Febrile neutropenia. HISTORY OF PRESENT ILLNESS: An 82-year-old white man, unwell for several days. Problems started with some significant cough, also some diarrhea. No recent history of antibiotics. History of B cell lymphoma, on chemotherapy several months ago and remains pancytopenic. He has visited with Dr. Mcdermott's office, and medications were administered. Uncertain as to what that might have been. The patient is rather somnolent and hypotensive and to be transferred to the intensive care unit. Cultures were obtained. Chest x-ray has revealed left basilar pneumonia. He is on Rocephin and Zithromax as well as chronic Valtrex for previous history of shingles several months ago. At present, the patient follows simple commands, but most of the information on this patient is gathered from the review of his records and conversation with the patient's . ALLERGIES: None listed. MEDICATIONS: The patient is on treatment with Valtrex 500 mg daily, Rocephin 1 gram IV daily, Zithromax 500 mg daily. He is also receiving cyanocobalamin 1000 mcg p.o. daily, vitamin E 4000 units p.o. daily, multivitamin with iron one daily, torsemide 20 mg daily, lisinopril 40 mg daily, ferrous sulfate 325 mg daily, gabapentin 300 mg b.i.d., terazosin 10 mg at bedtime, guaifenesin 1200 mg b.i.d., intravenous fluids, sodium chloride 1000 mL every 10 hours. Atrovent, albuterol inhalation treatments, p.r.n. acetaminophen, p.r.n. ondansetron, p.r.n. glucose, p.r.n. glucagon, regular insulin. Infusions, pressors consistent of epinephrine, vasopressin, Levophed as needed per protocol. PAST MEDICAL HISTORY:. Chronic kidney disease, being cared for by Dr. Nieto. B-cell lymphoma, under the care of Dr. Erick Mcdermott. No chemotherapy for several months. Immunocompromised host. Diarrhea, must rule out Clostridium difficile colitis in immunocompromised host. Status post Port-A-Cath. Right knee replacement x 2. Left knee replacement. Hypertension. Gastroesophageal reflux disease. Hemorrhoidectomy. Previous peptic [place] [address] CONSULTATION Name: MERY MAYA Room #: 236-P [facility] IN M.R.#: [id number] Admission: 02/09/18 Attend Phys: Db Grewal MD Discharge: Date of : 35 Report #: [id number] removal, hiatal hernia. Has required blood transfusions on account of severe anemia. Congestive heart failure. History of pancytopenia. SOCIAL HISTORY: Used to work for [email or web address], grown children. No tobacco, no alcohol. FAMILY HISTORY: See H and P and records. REVIEW OF SYSTEMS: As above. PHYSICAL EXAMINATION: GENERAL: Chronically ill-appearing, somnolent white man. VITAL SIGNS: Temperature maximum 101.4, BP 96/42, pulse 106-94 per minute, respirations 23. HEENMT: Head normocephalic, atraumatic. Pupils reactive. Arcus cornealis. Mouth: Moist mucous membranes. No thrush. NECK: Supple, no thyromegaly. LUNGS: Basilar crackles, left base. HEART: S1, S2. No gallop or murmur. CHEST: Right-sided Port-A-Cath site looks fine. ABDOMEN: Mild erythema of the abdominal wall. No active lesions of shingles on left lung where he previously had problem. Abdomen without masses, megaly or abnormal tenderness. GENITALIA AND RECTAL: Deferred. EXTREMITIES: No clubbing, cyanosis. NEUROLOGIC: Grossly within normal limits. LABORATORY DATA: Sodium 139, potassium 3.8, BUN 61, creatinine 3.6, glucose 99, albumin 3.3 g/dL. NT-proBNP 431, iron saturation 5%. WBC 1200, hemoglobin 10.3 g/dL and platelets 44,000. The white blood cell count differential revealed 69% neutrophils yesterday. Ferritin 1769. Procalcitonin 2.52. Urinalysis negative. ABGs: PH 7.37, pCO2 of 34, pO2 of 91, bicarbonate 19, lactate 2.21. This set of gases on 2 liters oxygen nasal cannula. Blood cultures negative. Nasal smear negative for influenza A and B. RADIOLOGY EVALUATION: The chest x-ray revealed possible left basilar infiltrate yesterday. Today's chest x-ray revealed possible hiatal hernia, cardiomegaly, Port-A-Cath and possibly left basilar infiltrate. ASSESSMENT: 1. Febrile neutropenia. 2. Possible left pneumonitis. 3. Diarrhea, rule out Clostridium difficile colitis. 4. Acute kidney injury on chronic kidney disease. 5. Pancytopenia. 6. B-cell lymphoma. 7. Encephalopathy secondary to above. [facility] [address] [place] [address] CONSULTATION Name: MERY MAYA Room #: 236-P ADM IN M.R.#: [id number] Admission: 02/09/18 Attend Phys: Db Grewal MD Discharge: Date of : 35 Report #: [id number] 8. Metabolic and lactic acidosis. SUGGESTIONS: Recommend broaden antibiotic spectrum coverage. We will continue Zithromax and discontinue Rocephin, start Zosyn and intravenous vancomycin as well as oral vancomycin for possible C. difficile colitis. Transfer to the intensive care unit per previous consult. Urine for legionella and Streptococcus pneumoniae antigen. MRSA screen. Dr. Burch and Dr. Grewal, thank you for requesting my suggestions in the care of your patient. <ELECTRONICALLY SIGNED> By: Gonzalo Henry MD 02/11/18 0833 1045 1159 Gonzalo Henry MD /nt
--- NOTE | ~2018-02-09 | HC ---
[facility] [place] [address] CONSULTATION Name: MERY MAYA Room #: 236-P ADM IN M.R.#: [id number] Admission: 02/09/18 Attend Phys: Db Grewal MD Discharge: Date of : 35 Report #: [id number] THIS REPORT FOR: //name// CC: Jeffrey Duong MD [facility] Luciano Sparrow MD REQUESTING PHYSICIAN: Poli Paiz M.D. REASON FOR CONSULTATION: Cytopenia. HISTORY OF PRESENT ILLNESS: The patient is a very pleasant 82-year-old gentleman who was admitted for bronchitis with cough and shortness of breath. He denies any fever. He has also had some increased diarrhea, though his bowels can be somewhat loose. No new skin rash, though he does have several ecchymoses. No dysuria. No blood in his urine or stool. PAST MEDICAL HISTORY: Past history is notable for history of B-cell lymphoma found at a bone marrow biopsy of 03/2017. Note that at that time, he had no lymphadenopathy on his CAT scans. He began rituximab and Treanda in 04/2017 and his last dose #6 was given on 09/30/2017. The patient had initially presented with cytopenia and this has persisted. We had been talking about whether to consider a bone marrow biopsy. Past history is also notable for anemia of chronic disease, receiving erythropoietin 120 mcg monthly. Also, history of basal cell skin cancers, history of bladder disorder, history of hypertension, hyperlipidemia, iron-deficiency anemia in the past and received INFeD last year. Also, polyneuropathy. Also had a shingles outbreak in the past, type 2 diabetes and glaucoma. MEDICATIONS: At this time in the hospital currently include terazosin 10 mg at bedtime, gabapentin 300 b.i.d., B12 at 1000 mcg daily, vitamin E 400 units daily, multivitamin with iron 1 tab daily, torsemide 20 mg daily, lisinopril 40 daily, ferrous sulfate 325 daily, valacyclovir 500 mg daily, guaifenesin ER 1200 mg b.i.d., Zithromax 500 mg IV daily, ceftriaxone 1 g daily, hydrocodone p.r.n., albuterol sulfate respiratory therapy every 4 hours while awake, Tylenol p.r.n. and Zofran p.r.n. SOCIAL HISTORY: Unchanged. The patient is retired. PHYSICAL EXAMINATION: VITAL SIGNS: Height is 5 feet 6, 167.6 cm. Weight is 215.6 pounds. [address] [address] CONSULTATION Name: MERY MAYA Room #: 236-P [facility] IN M.R.#: [id number] Admission: 02/09/18 Attend Phys: Db Grewal MD Discharge: Date of : 35 Report #: [id number] pressure is 100/50, O2 sat 93%, respirations 20, pulse 90 and temperature 100.2. It had been up to 101.4 yesterday. HEENT: Oropharynx clear. MOOD: The patient is alert and pleasant. NEUROLOGIC: He is alert, pleasant. Moving all extremities. LUNGS: Has quite a bit of coughing with some rhonchi, very slight wheeze on forced expiration at the end of his cough, none during the early portion. HEART: Regular rate. LYMPHATICS: No enlarged lymph nodes in the supraclavicular, cervical, axillary or inguinal region. ABDOMEN: Obese, nontender. No mass. EXTREMITIES: Without clubbing or cyanosis. There is some edema. LABORATORY DATA: Lab results here notable for a white count of 1.2 with 69% neutrophils, 2% bands, 7% lymphocytes, 21% monocytes with an ANC of 900, hemoglobin at 10.3 and platelets of 44,000. Creatinine at 2.9. Liver functions normal. ASSESSMENT AND PLAN: 1. History of non-Hodgkin's lymphoma, thought to have responded because of initial improvement in blood counts, but now has persistent cytopenia which may have been related to chemotherapy. This could also be from progressive disease, would consider bone marrow biopsy in the near future. 2. Febrile illness with cough, suspect bronchitis. Continue Zithromax and ceftriaxone. Cultures pending. 3. Chronic obstructive pulmonary disease. Continues inhalers. 4. Renal insufficiency, cautious diuretics. 5. Cardiac issues, continues torsemide and lisinopril. 6. Type 2 diabetes. Manage sugars and watch diet. We will follow with you. <ELECTRONICALLY SIGNED> By: Erick Mcdermott MD 02/11/18 0621 0944 1057 Erick Mcdermott MD /nt
--- NOTE | ~2018-02-09 | HC ---
[facility] [place] [address] CONSULTATION Name: MERY MAYA Room #: 363-P ADM IN M.R.#: [id number] Admission: 02/09/18 Attend Phys: Db Grewal MD Discharge: Date of : 35 Report #: [id number] THIS REPORT FOR: //name// CC: Db Sparrow REASON FOR CONSULTATION: Chronic kidney disease. HISTORY OF PRESENT ILLNESS: A well known patient to me, he is an 82-year-old with past medical history of chronic kidney disease with a baseline creatinine of around 2.0. He had a bone marrow biopsy back in 03/2017 and was discovered to have B cell lymphoma. He started on rituximab and Treanda in 04/2017. He finished his chemotherapy in 09/2017. He presented to the hospital, complaining of nonproductive cough, fever with generalized body ache and diarrhea. He was admitted for further evaluation and management. He reported to profuse diarrhea. He was found to have an acute kidney injury with pancytopenia on his presentation. Creatinine was up to 3.6 from a baseline of around 2.0. He was admitted to the ICU with neutropenic isolation precautions and I am being consulted to manage his chronic kidney disease. He previously saw Dr. Nieto and extensive workup has been done for him regarding his kidney issues. Agreement between him and Dr. Nieto was to manage his chronic kidney disease conservatively. PAST MEDICAL HISTORY: 1. B cell lymphoma. 2. Hypertension. 3. Bladder biopsy. 4. Left knee replacement. 5. Right knee replacement. 6. Hemorrhoidectomy. 7. Bone marrow biopsy. 8. Peptic ulcer disease. MEDICATIONS: 1. Simvastatin. 2. Terazosin: 3. Gabapentin. 4. Torsemide. 5. Potassium. 6. Lisinopril. ALLERGIES: No known drug allergies. SOCIAL HISTORY: Denies drug or alcohol abuse. REVIEW OF SYSTEMS: GENERAL: Significant for fever and chills. [facility] [address] [place] [address] CONSULTATION Name: MERY MAYA Room #: 363-P [facility] IN [facility].#: [id number] Admission: 02/09/18 Attend Phys: Db Grewal MD Discharge: Date of : 35 Report #: [id number] CARDIOVASCULAR: No chest pain or palpitation. PULMONARY: As per the history of present illness. GASTROINTESTINAL: Diarrhea with decreased p.o. intake. GENITOURINARY: He uses intermittent catheterization for his overactive bladder. PHYSICAL EXAMINATION: GENERAL: Alert, oriented, in no apparent distress. VITAL SIGNS: Blood pressure is 145/62. Temperature on arrival was 36.1. He had a temperature spike up to 38.6. HEAD AND NECK: No jugular venous distention. CHEST: Decreased air entry bilaterally. No crackles. CARDIOVASCULAR: Regular with no rub. ABDOMEN: Soft, nontender. LOWER EXTREMITIES: No edema. LABORATORY DATA: Laboratory values reviewed. White blood cell count picking up to 2.1, platelets 54. Creatinine is down to 2.6. Sodium is 142, potassium was 4, chloride was 110, carbon dioxide was 19. IMAGING: Chest x-ray reviewed. ASSESSMENT, IMPRESSION, PLAN: 1. Acute kidney injury. 2. Pancytopenia. 3. B cell lymphoma. 4. Chronic kidney disease. 5. Overactive bladder. 6. As of this moment, the patient's creatinine is actually trending back towards his baseline. His acute kidney injury was likely related to his febrile illness, gastrointestinal illness while taking an angiotensin converting enzyme inhibitor with decreased p.o. intake. 7. Continue to hold those for now. 8. Baseline creatinine is around 2 and he should fully recover to work his baseline. He does have leukopenia and major issues with retention. I asked the nurses to straight cath q.6-8 hours. 9. Adjust the dose of his Neurontin. 10. Hold torsemide. 11. Hold lisinopril. 12. Continue with the IV fluid. 13. Hematology is managing his pancytopenia. 14. Infectious Disease is managing his antibiotics. <ELECTRONICALLY SIGNED> By: Pantera Marsh MD 02/14/18 0636 0829 1320 Pantera Marsh MD /nt
--- NOTE | ~2018-02-09 | 2DMMODE ---
[facility] [place] [address] 2 D/M-MODE ECHOCARDIOGRAM Name: MERY MAYA Room #: 363-P ADM IN M.R.#: [id number] Admission: 02/09/18 Attend Phys: Db Grewal MD Discharge: Date of : 35 Date of Service: 02/14/18 1223 Report #: [id number] THIS REPORT FOR: //name// APPROVED REPORT Study performed: 02/14/2018 11:36:46 EXAM: Comprehensive 2D, Doppler, and color-flow Echocardiogram Patient Location: Echo lab Room #: 363 Status: routine BSA: 2.12 HR: 83 bpm BP: 135/78 mmHg Rhythm: NSR/Irregular Other Information Study Quality: Adequate Indications Dyspnea. Hx: HTN, CHF 2D Dimensions RVDd: 41.21 mm LVEF(%): 40.13 (>50%) IVSd: 11.52 (7-11mm) LVOT Diam: 22.26 (18-24mm) LVDd: 58.41 mm PWd: 11.67 (7-11mm) Ascending Ao: 37.40 (22-36mm) LVDs: 46.80 (25-40mm) Aortic Root: 41.88 mm Will's LVEF: 40.13 % Volumes Left Atrial Volume (Systole) Single Plane 4CH: 89.22 mL Single Plane 2CH: 90.20 mL LA ESV Index: 46.00 mL/m2 Aortic Valve AoV Peak Sreekanth.: 1.37 m/s AO Peak Gr.: 7.48 mmHg LVOT Max P.94 mmHg LVOT Max V: 0.99 m/s SHAW Vmax: 2.82 cm2 Mitral Valve E/A Ratio: 0.7 MV Decel. Time: 123.56 ms [facility] [place] [address] 2 D/M-MODE ECHOCARDIOGRAM Name: FRANCESCOMERY Room #: 363-P [facility] IN M.R.#: [id number] Admission: 02/09/18 Attend Phys: Db Grewal MD Discharge: Date of : 35 Date of Service: 02/14/18 1223 Report #: [id number] MV E Max Sreekanth.: 1.09 m/s MV A Sreekanth.: 1.47 m/s MV PHT: 35.83 ms IVRT: 110.73 ms Pulmonary Valve PV Peak Sreekanth.: 0.99 m/s PV Peak Gr.: 3.95 mmHg Pulmonary Vein P Vein S: 0.65 m/s P Vein D: 0.45 m/s P Vein S/D Ratio: 1.44 Tricuspid Valve TR Peak Sreekanth.: 3.04 m/s RAP Estimate: 5.00 mmHg TR Peak Gr.: 36.92 mmHg PA Pressure: 42.00 mmHg Left Ventricle Left ventricle is mildly dilated. Mild concentric left ventricular hypertrophy. Left ventricular systolic function is moderate to severely decreased. LVEF is 30-35%. Mild diastolic dysfunction is present (impaired relaxation pattern). Right Ventricle Right ventricle is at the upper limits of normal. The right ventricular systolic function is normal. Atria Left atrium is moderately dilated. Right atrium is mildly dilated. Aortic Valve The Aortic valve is sclerotic. Trace to mild aortic regurgitation. There is no aortic valvular stenosis. Mitral Valve Mitral valve leaflets are mildly thickened. Mild mitral annular calcification. Moderate mitral regurgitation. No evidence of mitral valve stenosis. Tricuspid Valve The tricuspid valve is normal in structure. Mild tricuspid regurgitation. Estimated PAP is 40-45mmHg. Pulmonic Valve [address] [address] 2 D/M-MODE ECHOCARDIOGRAM Name: MERY MAYA Room #: 363-P [facility] IN .R.#: [id number] Admission: 02/09/18 Attend Phys: Db Grewal MD Discharge: Date of : 35 Date of Service: 02/14/18 1223 Report #: [id number] The pulmonary valve is normal in structure. Trace pulmonic regurgitation. Great Vessels Aortic root is dilated at 4.2cm. The ascending aorta is borderline dilated. IVC is normal in size and collapses >50% with inspiration. Pericardium Small anterior pericardial fluid noted. <Conclusion> Left ventricle is mildly dilated. Left ventricular systolic function is moderate to severely decreased. LVEF is 30-35%. Left atrium is moderately dilated. Right atrium is mildly dilated. The Aortic valve is sclerotic. Trace to mild aortic regurgitation. Mitral valve leaflets are mildly thickened. Mild mitral annular calcification. Moderate mitral regurgitation. The tricuspid valve is normal in structure. Mild tricuspid regurgitation. Estimated PAP is 40-45mmHg. The pulmonary valve is normal in structure. Trace pulmonic regurgitation. The ascending aorta is borderline dilated. Aortic root is dilated at 4.2cm. Small anterior pericardial fluid noted. <ELECTRONICALLY SIGNED> By: Timothy Ridley MD 02/14/18 1223 1223 1223 Timothy Ridley MD /INF
--- NOTE | ~2018-02-09 | S ---
[facility] [place] [address] SURGICAL PATH RPT PROCEDURE Name: MERY MAYA Room #: 236-P ADM IN M.R.#: [id number] Admission: 02/09/18 Date of : 35 Discharge: Report #: [id number] Path Case #: [id number] PATHOLOGY REPORT COLLECTION DATE: 02/10/2018 RECEIVED DATE: 02/10/2018 SUBMITTING PHYS: Dr. Poli Paiz OTHER PHYS: Dr. Derrick Sparrow SPECIMEN(S) RECEIVED: A.Peripheral smear * * * * * * * * * * * * FINAL DIAGNOSIS: Peripheral Blood: - Peripheral blood with mild to severe pancytopenia, relativ neutrophilia and lymphocytopenia. - Please see comment. COMMENT: The peripheral blood shows mild to severe pancytopenia with relative neutrophilia, increased bands, and toxic changes including occasional Dohle bodies, toxic granulation and few cytoplasmic vacuoles. The neutrophils show rare hypolobated forms. The findings may suggest a reactive process probably secondary to infectious/inflammatory etiology. Other possible causes of pancytopenia should also be considered and may include infiltration of the bone marrow by tumors, fibrosis and granulomatous infections as well as ineffective hematopoiesis such as seen in myelodysplasia or paroxysmal nocturnal hemoglobinuria, vitamin B12 or folate deficiency, and myelosuppressive drugs. Increased splenic activity (hypersplenism) as well as aplastic anemia may also cause pancytopenia. Correlation with clinical findings is recommended. (CJ:nanci; 02/10/2018) PATHOLOGIST: Ladi Paredes M.D. REPORT ELECTRONICALLY SIGNED BY: Ladi Paredes M.D. DATE/TIME: 02/10/2018 16:27 * * * * * * * * * * * * MICROSCOPIC DESCRIPTION: CBC Data (02/10/2018): WBC 1.2, RBC 3.09, hemoglobin 10.4, hematocrit 29.6.0, MCV 95.8, RDW 13.7%, platelet count 44,000. White blood cell count differential: 58% segs, 22% bands, 15% lymphs, 5% monos. Peripheral Blood: Red blood cells are normochromic with mild anisopoikilocytosis [facility] [address] [place] [address] SURGICAL PATH RPT PROCEDURE Name: MERY MAYA Room #: 236-P ADM IN M.R.#: [id number] Admission: 02/09/18 Date of : 35 Discharge: Report #: [id number] Path Case #: [id number] including occasional microcytic and macrocytic forms without schistocytes or morphologic evidence of a hemolytic process identified. Platelets are severely decreased with normal morphology. Aggregates of platelets are not identified. White blood cells are severely decreased with predominance of mature segmented neutrophils and increased bands. The neutrophils show toxic changes including occasional Dohle bodies, toxic granulation and few cytoplasmic vacuoles. There are no circulating blasts or myeloid left shift identified. The lymphocytes are decreased and are mostly small and mature with few atypical reactive lymphocytes. (CJ:nanci; 02/10/2018) CLINICAL HISTORY: The patient is an 82-year-old male with a past medical history significant for lymphoma for which he underwent chemotherapy in September, chronic anemia, hypertension, CHF and neuropathy. He recently was admitted due to cough, generalized body aches, weakness, and diarrhea. He also was noted to have pancytopenia. A peripheral smear is submitted for review. INITIAL CPT CODE(S): A; 35256 Professional services performed by [email or web address] at [facility], [address] [place] [address]. Technical services performed by [facility], [employer]. at [address], [address]. [facility] [address] [place] [address] PHONE: [phone] DIRECTOR: Ulysses Allison M.D. * * * END OF REPORT * * *
--- NOTE | ~2018-02-09 | HC ---
[facility] [place] [address] CONSULTATION Name: MERY MAYA Room #: 236-P ADM IN M.R.#: [id number] Admission: 02/09/18 Attend Phys: Db Grewal MD Discharge: Date of : 35 Report #: [id number] THIS REPORT FOR: //name// CC: Db [facility] SYSTEM[facility] Sparrow DATE OF SERVICE: 02/10/2018 REFERRING PROVIDER: Erick Mcdermott MD REASON FOR CONSULTATION: Pneumonia. CHIEF COMPLAINT: Weakness, shortness of breath and cough. HISTORY OF PRESENT ILLNESS: Our group was asked to see this patient in consultation this morning while hospitalized at [facility]. The patient had been feeling ill for the last 5-6 days with increasing shortness of breath, weakness, low-grade fevers, cough with difficulty clearing secretions. The patient is very somnolent today, but arousable, but is difficult to get any history from. is able to give adequate history. Apparently, the patient also has a history of lymphoma, but has not been on any treatment since September as it appeared that his lymphoma was in remission. The patient reported to [facility] yesterday, but they found him to be significantly ill to refer him to our Emergency Department and subsequently admitted and placed on antibiotics for community-acquired pneumonia. He had a left lower lobe infiltrate noted on chest x-ray. I do not see where the patient may have gotten any kind of a fluid bolus. The patient continues to have significant congestion. No recent travel. ALLERGIES: None known. PAST MEDICAL HISTORY: 1. History of lymphoma. 2. History of renal insufficiency, apparently improved since 1 year ago. 3. History of transfusion related acute lung injury. 4. Hyperlipidemia. 5. Neuropathy. 6. Hypertension. 7. Hiatal hernia. OUTPATIENT MEDICATIONS: Include vitamin E, Tylenol, simvastatin, gabapentin, terazosin, multivitamin, torsemide, iron, valacyclovir, lisinopril. [facility] [address] [place] [address] CONSULTATION Name: MERY MAYA Room #: 236-P [facility] IN ..#: [id number] Admission: 02/09/18 Attend Phys: Db Grewal MD Discharge: Date of : 35 Report #: [id number] SOCIAL HISTORY: Nonsmoker, nondrinker, lives with family. FAMILY HISTORY: Difficult to obtain from the patient. REVIEW OF SYSTEMS: Otherwise difficult to obtain from the patient. He denied any nausea, vomiting, chest pain, palpitations. Has had some difficulty with lower extremity edema but the rest of 12 point review of systems is negative. PHYSICAL EXAMINATION: VITAL SIGNS: Temperature 38.6 max overnight, temperature current 37.9, pulse 90, respiratory rate , blood pressure 100/50. GENERAL: This is an elderly male, arousable but very somnolent. ENT: Clear oropharynx. NECK: Supple. No lymphadenopathy. CHEST: Reveals a right Port-A-Cath accessed with no surrounding erythema or fluctuance. LUNGS: Revealed coarse rhonchi throughout, predominantly in the bases with basilar inspiratory crackles. CARDIOVASCULAR: Heart sounds are distant and difficult to auscultate through the respiratory noise, but appeared regular. I could not appreciate any murmur. ABDOMEN: Soft, nondistended. No hepatosplenomegaly. EXTREMITIES: Slightly cool with diminished pulses and 1+ lower extremity edema. NEUROLOGIC: The patient was somewhat arousable and appropriate, moving all extremities. LABORATORY DATA: White blood cell count is 1.2, hemoglobin 10, hematocrit 29, platelet count 44. Chemistry profile revealed sodium 139, potassium 3.8, chloride 104, bicarbonate 21, BUN is 61, creatinine 3.6, which is up from 2.9 yesterday and glucose of 99. Arterial blood gas is pending. Urinalysis was clear. IMPRESSION: 1. Severe sepsis as manifested by hypotension, febrile illness, leukopenia and acute renal failure in addition to hypoxemic respiratory failure and altered mental status consistent with severe sepsis, likely from pneumonia source. 2. Neutropenia. 3. Modqo-su-tdznppe renal failure. 4. Acute hypoxemic respiratory failure. 5. Community-acquired pneumonia; however, in a neutropenic immunocompromised patient, will need broad-spectrum antimicrobials for additional atypical and opportunistic organisms if appropriate. 6. Possible adrenal insufficiency, unclear if the patient had significant steroids as part of his management for lymphoma, may need stress dose hydrocortisone as part of his therapy. [address] [address] CONSULTATION Name: MERY MAYA Room #: 236-P [facility] IN M.R.#: [id number] Admission: 02/09/18 Attend Phys: Db Grewal MD Discharge: Date of : 35 Report #: [id number] SUGGEST: 1. Transfer to ICU. 2. Central venous access. 3. Fluid bolus. 4. Nephrology and Infectious Disease consultation. 5. Stress dose steroids. 6. Broad antimicrobials per Infectious Disease. 7. Sepsis protocol. 8. Add EzPAP and flutter valve to assist with airway clearance in addition to albuterol. 9. Discussed at length with and patient at bedside as well as some consultants. Total critical care time was 45 minutes to this point not including any procedures. We will continue to follow. <ELECTRONICALLY SIGNED> By: Chris Burch MD 02/10/18 1756 1025 1132 Chris Burch MD /ramana
--- NOTE | ~2018-02-09 | HC ---
[facility] [place] [address] [address] [address] CONSULTATION Name: MERY MAYA Room #: 236-P [facility] IN .R.#: [id number] Admission: 02/09/18 Attend Phys: Db Grewal MD Discharge: Date of : 35 Report #: [id number] THIS REPORT FOR: //name// CC: Db Sparrow DATE OF SERVICE: 02/10/2018 HISTORY OF PRESENT ILLNESS: The patient is an 82-year-old white male with a history of bilateral lower extremity neuropathy, numbness, tingling, and history of a lymphoma with last chemotherapy in September. The patient and his note that he follows with ____ and apparently he has had neuropathy for a number of years. He does not have a history of diabetes. There may have been some worsening with the chemotherapy that was completed in last September. He was admitted this hospitalization with diarrhea, community-acquired pneumonia, pancytopenia, and was noted to have a left basilar pneumonia with sepsis. He also has been diagnosed with an encephalopathy. He has acute renal insufficiency. We are seeing him in rehabilitation medicine consultation. PAST MEDICAL HISTORY: Includes hypertension, bilateral knee replacement, GERD, overactive bladder, CHF, lymphoma, hypertension, and hyperlipidemia. HABITS: No history of tobacco abuse, only takes alcohol on special occasions. ALLERGIES: No known drug allergies. SOCIAL HISTORY: He lives in an apartment with his , first level. No steps. Did not utilize gait aids. He was not on O2 premorbidly. REVIEW OF SYSTEMS: Did not offer any current complaints of chest pain, shortness of breath, abdominal discomfort. Has some lower extremity numbness and discomfort. PHYSICAL EXAMINATION: GENERAL: An 82-year-old white male in no obvious distress. VITAL SIGNS: Last recorded temperature 99.5, pulse 90, respirations 22, blood pressure 100/80. NEUROLOGIC: He is alert. He will follow basic 1 step commands. There is some latency to his responses and he tends to defer to his . Facies appeared symmetric. Functional range of motion of both upper extremities without obvious focal weakness. DTRs are 1. His lower extremities, he does have decreased distal sensation to light touch and proprioception. Strength is grade 4-/5. He has had prior total knee replacement surgery with well-healed knee incision. ASSESSMENT: An 82-year-old white male with the following problem list: 1. Multifactorial peripheral neuropathy. He has what appears to be a baseline [address] [address] CONSULTATION Name: MERY MAYA Room #: 236-P [facility] IN ..#: [id number] Admission: 02/09/18 Attend Phys: Db Grewal MD Discharge: Date of : 35 Report #: [id number] idiopathic peripheral neuropathy that may have had some contribution with his noted chemotherapy. 2. Encephalopathy. 3. Sepsis. 4. Left basilar pneumonia. 5. Pancytopenia. 6. Acute renal insufficiency superimposed on chronic kidney disease. 7. Diastolic congestive heart failure. PLAN: Therapy evaluations are underway. He will be considered for a possible acute in-hospital inpatient rehabilitation stay as he further medically stabilizes. At this point, we will continue to follow along with you. Thank you for asking us to assist in this patient's care. By: [id number] [id number] Walter Castro MD /nt
--- NOTE | ~2018-02-09 | EKG ---
[address] [place] [address] ELECTROCARDIOGRAM REPORT Name: MERY MAYA Room #: 451-P ADM IN M.R.#: [id number] Admission: 02/09/18 Attend Phys: Poli Paiz Discharge: Date of : 35 Report #: [id number] THIS REPORT FOR: //name// [facility] ED Test Date: 2018-02-09 Test Time: 18:02:33 Pat Name: MERY MAYA Department: Room: [facility] Gender: M Crew Manager: surya : 1935 Requested By: Marichuy Berrios Order Number: [id number] MD: Hugo Duong Measurements Intervals [place] Rate: 93 P: 1 NM: 170 QRS: 12 QRSD: 95 T: 52 QT: 360 QTc: 448 Interpretive Statements Sinus rhythm Atrial premature complexes Probable left atrial enlargement Compared to ECG 03/31/2017 17:50:50 T-wave abnormality no longer present Electronically Signed On 02-10-2018 7:29:29 CDT by Hugo Duong [email or web address] <ELECTRONICALLY SIGNED> By: Hugo Duong MD, [facility] 02/10/18 0729 01 01 Hugo Duong MD, [facility] /EPI
[2018-02-09 17:09] VITALS: BP 95/40
[2018-02-09] MEDS ORDERED: IRON325 PO (17:17)
[2018-02-09] MEDS ORDERED: VITAMIN B-12500 MCG PO (17:17)
[2018-02-09] MEDS ORDERED: KLOR-CON 1010 MEQ PO (17:18)
[2018-02-09] MEDS ORDERED: VALTREX 500 MG500 MG PO (17:24)
[2018-02-09 17:52] LABS: HEMOGLOBIN 9.1 gm/dL (14.0-18.0); MCV 94.7 fL (80.0-100.0); RDW 13.7 % (10.5-14.5)
[2018-02-09 17:54] LABS: HEMATOCRIT 25.6 % (42.0-52.0); MCH 33.5 pg (26.0-34.0); MCHC 35.4 g/dL (28.0-37.0)
[2018-02-09 17:57] LABS: WBC 1.2 thou/uL (4.0-11.0)
[2018-02-09 18:01] LABS: ANION GAP 14 mmol/L (7-16); BUN 58 mg/dL (7-18); CALCIUM 8.4 mg/dL (8.5-10.1); CHLORIDE 104 mmol/L (98-107); CO2 22 mmol/L (21-32); CREATININE 2.9 mg/dL (0.7-1.3); GLUCOSE 92 mg/dL (74-106); POTASSIUM 4.1 mmol/L (3.5-5.1); SODIUM 140 mmol/L (136-145)
[2018-02-09 18:09] LABS: ALBUMIN 3.3 g/dL (3.4-5.0); SGOT 28 U/L (15-37); SGPT 28 U/L (30-65); TOTAL BILIRUBIN 0.5 mg/dL (<0.1-1.0); TOTAL PROTEIN 5.8 g/dL (6.4-8.2); TROPONIN-I < 0.04 ng/mL (<0.06)
[2018-02-09 18:18] LABS: ABSOLUTE NEUTROPHILS 0.9 thou/uL (1.4-8.2)
[2018-02-09 18:20] LABS: ANISOCYTOSIS 1+; PLATELET COUNT 56 thou/uL (150-400); TARGET CELLS OCCASIONAL
[2018-02-09 18:47] LABS: URINE BILIRUBIN NEGATIVE (Negative); URINE BLOOD NEGATIVE (Negative); URINE CLARITY CLEAR; URINE COLOR YELLOW; URINE GLUCOSE-RANDOM* NEGATIVE (Negative); URINE KETONES NEGATIVE (Negative); URINE LEUKOCYTES NEGATIVE (Negative); URINE NITRITE NEGATIVE (Negative); URINE PROTEIN (DIPSTICK) NEGATIVE (Negative); URINE UROBILINOGEN 0.2 E.U./dl (0.2-1.0)
[2018-02-09 20:33] VITALS: BP 86/42
[2018-02-09 20:57] VITALS: BP 115/45
[2018-02-09 21:15] VITALS: BP 147/114
[2018-02-09 23:39] VITALS: BP 90/35
[2018-02-10] VITALS (31 sets, daily range): BP systolic 81–122; BP diastolic 27–99
[2018-02-10 05:20] LABS: MCH 33.7 pg (26.0-34.0)
[2018-02-10 05:21] LABS: HEMATOCRIT 29.2 % (42.0-52.0); HEMOGLOBIN 10.3 gm/dL (14.0-18.0); MCHC 35.4 g/dL (28.0-37.0); RBC 3.07 mil/uL (4.50-6.00); RDW 13.9 % (10.5-14.5)
[2018-02-10 05:24] LABS: WBC 1.2 thou/uL (4.0-11.0)
[2018-02-10 05:31] LABS: CALCIUM 7.5 mg/dL (8.5-10.1); CREATININE 3.6 mg/dL (0.7-1.3); POTASSIUM 3.8 mmol/L (3.5-5.1)
[2018-02-10 08:55] LABS: % SATURATION 5 % (20-39); IRON 8 ug/dL (65-175); TIBC 171 ug/dL (250-450)
[2018-02-10 09:29] LABS: FERRITIN 1769 ng/mL (26-388)
[2018-02-10 10:23] LABS: APTT 31.5 Seconds (24.5-32.8); FIBRINOGEN 407.5 mg/dL (210-360); PROTIME 10.1 Seconds (9.3-11.4)
[2018-02-10 10:35] LABS: BE(vivo) -4.9 mmol/L (-2 to +3); HCO3 19.8 mmol/L (22.0-26.0); PCO2 34.4 mmHg (35.0-45.0); PO2 91.5 mmHg (80.0-100.0); pH 7.377 (7.360-7.450); sO2 96.9 % (92.0-98.0)
[2018-02-10 12:14] LABS: HEMATOCRIT 20.1 % (42.0-52.0); MCH 33.8 pg (26.0-34.0); MCHC 35.5 g/dL (28.0-37.0); MCV 95.1 fL (80.0-100.0); RBC 2.12 mil/uL (4.50-6.00); RDW 13.9 % (10.5-14.5)
[2018-02-10 12:19] LABS: WBC 1.9 thou/uL (4.0-11.0)
[2018-02-10 12:20] LABS: HEMOGLOBIN 7.1 gm/dL (14.0-18.0)
[2018-02-10 12:21] LABS: URINE BILIRUBIN NEGATIVE (Negative); URINE BLOOD NEGATIVE (Negative); URINE CLARITY CLEAR; URINE COLOR YELLOW; URINE GLUCOSE-RANDOM* NEGATIVE (Negative); URINE KETONES NEGATIVE (Negative); URINE LEUKOCYTES-REFLEX NEGATIVE (Negative); URINE NITRITE-REFLEX NEGATIVE (Negative); URINE PROTEIN (DIPSTICK) NEGATIVE (Negative); URINE UROBILINOGEN 0.2 E.U./dl (0.2-1.0)
[2018-02-10 12:21] LABS: CALCIUM 7.2 mg/dL (8.5-10.1); CREATININE 3.9 mg/dL (0.7-1.3); POTASSIUM 3.8 mmol/L (3.5-5.1)
[2018-02-10 12:26] LABS: ALBUMIN 2.4 g/dL (3.4-5.0); TOTAL BILIRUBIN 0.3 mg/dL (<0.1-1.0); TOTAL PROTEIN 4.8 g/dL (6.4-8.2)
[2018-02-10 12:27] LABS: APTT 31.4 Seconds (24.5-32.8); FIBRINOGEN 374.5 mg/dL (210-360); PROTIME 10.6 Seconds (9.3-11.4)
[2018-02-10 12:40] LABS: ABSOLUTE NEUTROPHILS 1.4 thou/uL (1.4-8.2); METAMYELOCYTES 1 %; PLATELET COUNT 53 thou/uL (150-400); PLATELET ESTIMATE DECREASED
[2018-02-10 17:14] LABS: CALCIUM 7.1 mg/dL (8.5-10.1); CREATININE 3.2 mg/dL (0.7-1.3); POTASSIUM 3.9 mmol/L (3.5-5.1)
[2018-02-10 20:58] LABS: CALCIUM 7.3 mg/dL (8.5-10.1); CREATININE 3.1 mg/dL (0.7-1.3)
[2018-02-11] VITALS (37 sets, daily range): BP systolic 73–160; BP diastolic 48–107
[2018-02-11 05:54] LABS: HEMATOCRIT 24.1 % (42.0-52.0); HEMOGLOBIN 8.5 gm/dL (14.0-18.0); MCH 33.3 pg (26.0-34.0); MCHC 35.1 g/dL (28.0-37.0); PLATELET COUNT 54 thou/uL (150-400); RBC 2.54 mil/uL (4.50-6.00); RDW 13.5 % (10.5-14.5); WBC 2.1 thou/uL (4.0-11.0)
[2018-02-11 06:01] LABS: CALCIUM 7.8 mg/dL (8.5-10.1); CREATININE 2.6 mg/dL (0.7-1.3)
[2018-02-11 08:38] LABS: ABSOLUTE NEUTROPHILS 1.8 thou/uL (1.4-8.2); ANISOCYTOSIS SLIGHT; POIKILOCYTOSIS SLIGHT
[2018-02-11 16:07] LABS: KAPPA FREE LIGHT CHAINS 29.9 mg/L (3.3-19.4); KAPPA/LAMBDA RATIO 2.51 (0.26-1.65); LAMBDA FREE LIGHT CHAINS 11.9 mg/L (5.7-26.3)
[2018-02-12] VITALS (8 sets, daily range): BP systolic 147–178; BP diastolic 68–115
[2018-02-12 05:49] LABS: HEMATOCRIT 22.5 % (42.0-52.0); MCH 33.5 pg (26.0-34.0); MCHC 35.4 g/dL (28.0-37.0); MCV 94.7 fL (80.0-100.0); PLATELET COUNT 66 thou/uL (150-400); RBC 2.37 mil/uL (4.50-6.00); RDW 13.8 % (10.5-14.5)
[2018-02-12 05:57] LABS: WBC 1.9 thou/uL (4.0-11.0)
[2018-02-12 06:00] LABS: ALBUMIN 2.4 g/dL (3.4-5.0); CALCIUM 8.3 mg/dL (8.5-10.1); PHOSPHORUS 3.1 mg/dL (2.5-4.9); POTASSIUM 3.5 mmol/L (3.5-5.1)
[2018-02-12 08:19] LABS: ABSOLUTE NEUTROPHILS 1.7 thou/uL (1.4-8.2)
[2018-02-12 08:21] LABS: ANISOCYTOSIS 2+; BURR CELLS OCCASIONAL; OVALOCYTES OCCASIONAL; POLYCHROMASIA SLIGHT
[2018-02-13 03:36] VITALS: BP 177/100
[2018-02-13 06:41] LABS: ALBUMIN 2.8 g/dL (3.4-5.0); CALCIUM 9.1 mg/dL (8.5-10.1); CREATININE 1.7 mg/dL (0.7-1.3); PHOSPHORUS 2.4 mg/dL (2.5-4.9); POTASSIUM 3.3 mmol/L (3.5-5.1)
[2018-02-13 07:41] VITALS: BP 155/81
[2018-02-13 11:11] VITALS: BP 173/95
[2018-02-13 15:49] VITALS: BP 158/84
[2018-02-13 19:31] VITALS: BP 140/77
[2018-02-13 23:26] VITALS: BP 148/85
[2018-02-14 04:23] VITALS: BP 149/80
[2018-02-14 05:18] LABS: CALCIUM 8.6 mg/dL (8.5-10.1); CREATININE 1.6 mg/dL (0.7-1.3); POTASSIUM 3.8 mmol/L (3.5-5.1)
[2018-02-14 07:37] LABS: HEMATOCRIT 22.6 % (42.0-52.0); HEMOGLOBIN 7.8 gm/dL (14.0-18.0); MCHC 34.6 g/dL (28.0-37.0); MCV 95.5 fL (80.0-100.0); RBC 2.36 mil/uL (4.50-6.00); RDW 14.3 % (10.5-14.5)
[2018-02-14 08:05] VITALS: BP 135/78
[2018-02-14 11:25] VITALS: BP 135/78
[2018-02-14 15:10] LABS: PARVOVIRUS IGG 0.1 index (0.0-0.8)
[2018-02-14 17:08] VITALS: BP 167/74
[2018-02-14 19:32] VITALS: BP 174/81
[2018-02-15 03:47] VITALS: BP 127/58
[2018-02-15 07:56] VITALS: BP 170/101
[2018-02-15] MEDS ORDERED: CARVEDILOL3.125 MG PO (11:31)
[2018-02-15] MEDS ORDERED: FLOMAX0.4 MG PO (11:31)
[2018-02-15] MEDS ORDERED: AMLODIPINE BESYL5 M1 PO (11:31)
[2018-02-15 11:35] VITALS: BP 176/88
== END 2018-02-15 15:17 | DRG 871 ==
LOC: ER 16:48 → 4W 20:29 → EROBS 20:29 → ICU 20:29 → 4W 21:01 → ICU 02-10 10:01 → 3W 02-12 09:41 → ENTRNSPT 02-15 15:08 → EDTRNSPTSTS 02-15 15:11 → 3W 02-15 15:17
PROVIDERS: Hospitalist; Internal Medicine Hematology & Oncology; Internal Medicine Nephrology; Internal Medicine Pulmonary Disease; Nurse Practitioner Family
DX: A41.9 Sepsis, unspecified organism (principal); G93.40 Encephalopathy, unspecified; J18.1 Lobar pneumonia, unspecified organism; D61.818 Other pancytopenia; N17.9 Acute kidney failure, unspecified; J44.0 Chronic obstructive pulmonary disease with (acute) lower respiratory infection; I13.0 Hypertensive heart and chronic kidney disease with heart failure and stage 1 through stage 4 chronic kidney disease, or unspecified chronic kidney disease; I50.30 Unspecified diastolic (congestive) heart failure; E87.0 Hyperosmolality and hypernatremia; D80.1 Nonfamilial hypogammaglobulinemia; Z96.653 Presence of artificial knee joint, bilateral; K21.9 Gastro-esophageal reflux disease without esophagitis; R65.20 Severe sepsis without septic shock; H40.9 Unspecified glaucoma; E78.5 Hyperlipidemia, unspecified; G47.00 Insomnia, unspecified; E11.22 Type 2 diabetes mellitus with diabetic chronic kidney disease; E11.42 Type 2 diabetes mellitus with diabetic polyneuropathy; N32.81 Overactive bladder; N18.3 Chronic kidney disease, stage 3 (moderate); E87.6 Hypokalemia; Z85.828 Personal history of other malignant neoplasm of skin; Z79.899 Other long term (current) drug therapy; Z85.72 Personal history of non-Hodgkin lymphomas; Z87.11 Personal history of peptic ulcer disease
CPT/HCPCS: 10040; 10078; 10879

== ENCOUNTER 2018-02-15 12:17 | Inpatient (IN) | payer OTHER, MEDICARE ==
[~2018-02-15] VITALS: Ht 167.6 cm; Wt 103.8 kg
--- NOTE | ~2018-02-15 | HC ---
[facility] [place] [address] CONSULTATION Name: MERY MAYA Room #: 506-1 ADM IN M.R.#: [id number] Admission: 02/15/18 Attend Phys: Walter Castro MD Discharge: Date of : 35 Report #: [id number] THIS REPORT FOR: //name// CC: Walter Stroudlei DATE OF SERVICE: 02/19/2018 ATTENDING PHYSICIAN: Walter Castro MD. PARKING METER INSTALLER: Heriberto Villalpando, PhD. CLINICAL PRESENTATION: The patient is an 82-year-old male admitted to the [facility] Unit for comprehensive inpatient rehabilitation program to improve functional mobility, activities of daily living and self-care and mental status. He has a history of lymphoma with chemotherapy dose last administered in 09/2017. The patient has a history of neuropathy. His assessment on admission to rehab includes multifactorial peripheral neuropathy, encephalopathy, sepsis, left basilar pneumonia, pancytopenia, acute renal insufficiency superimposed on chronic kidney disease and diastolic congestive heart failure. A complete description of his medical condition and history along with medications can be found in his medical record. Neuropsychological consultation was requested to provide assistance in the assessment of cognitive and emotional status and to provide recommendations and services. Prior to this most recent medical event, he was living independently with his in their home. He reports they have been independent with instrumental activities of daily living. The patient is a high school graduate. 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 Patient has two children. He is also a of the [employer]. TECHNIQUES UTILIZED: Clinical interview, review of medical records, staff consultation and behavioral observation, mini mental status exam 2 standard version, clock drawing and family interview - . EXAMINATION FINDINGS: The patient was alert and cooperative with the assessment. He accurately described events surrounding his admission. There is no evidence of aphasia. His thoughts are logical and goal oriented. There is no evidence of thought disorder. He does not report auditory or visual hallucinations. There is no suicidal ideation. He is reported to have been tearful with frequent requests to return home as soon as possible from different therapists that he has worked with while on the rehab unit. He describes his symptoms to include sleep disturbance, decreased appetite and fatigue during the day. Subjective anxiety and depression are also elevated. [address] [address] CONSULTATION Name: MERY MAYA Room #: 506-1 ADM IN M.R.#: [id number] Admission: 02/15/18 Attend Phys: Walter Castro MD Discharge: Date of : 35 Report #: [id number] His indicates that memory is somewhat diminished prior to this recent medical event. His performance on the MMSE 2 brief version is within normal limits with a raw score of 14 of 16 and a T-score of 45. He was 3/3 for initial registration, 5/5 for orientation to time and place. He was 1/3 for immediate recall of 3 items after a brief time delay and distraction. Performance within normal limits on the MMSE 2 standard version with a raw score 25/30 and a T-score of 44. He was 1/5 for serial sevens, 2/2 for naming, 1/1 for repetition. Auditory comprehension, reading, being able to write a sentence and copy a simple geometric design are within normal limits. Clock drawing was within normal limits. The patient is showing a return to normal cognition. He likely had a delirium, which has resolved. DIAGNOSTIC IMPRESSION: Adjustment disorder with anxiety and depressed mood. Delirium - resolved. RECOMMENDATIONS: The patient will benefit from the use of reassurance and relaxation techniques to assist in the management of anxiety. His should continue with managing medication upon his return home. Driving should be temporarily discontinued until he has a more full return to normal cognition. He may benefit from a more thorough neuropsych assessment upon discharge. However, his is supportive and able to provide additional assistance as needed. The patient is very much wanting to return home as soon as possible. Increased anxiety associated with the hospitalization, diminished sense of control are contributing. The patient is likely to be compliant with recommendations regarding environmental support including discontinuation of driving until a more full recovery is obtained. Thank you very much for allowing me to provide the consultation on this patient. <ELECTRONICALLY SIGNED> By: Heriberto Villalpando, PhD 02/20/18 1638 1659 99 Heriberto Villalpando, PhD /nt
--- NOTE | ~2018-02-15 | H ---
[facility] [place] [address] HISTORY AND PHYSICAL Name: MERY MAYA Room #: 506-1 ADM IN ..#: [id number] Admission: 02/15/18 Attend Phys: Walter Castro MD Discharge: Date of : 35 Report #: [id number] THIS REPORT FOR: //name// CC: Walter Sparrow DATE OF SERVICE: 02/16/2018 HISTORY AND PHYSICAL/POSTADMISSION PHYSICIAN EVALUATION HISTORY OF PRESENT ILLNESS: The patient is an 82-year-old white male who has a prior history of bilateral lower extremity neuropathy with numbness, tingling and a history of lymphoma with his last chemotherapy in September. The patient and his note that he follows with Dr. Smith and he has had neuropathy for a number of years. He does not have a history of diabetes. There may have been some worsening with the chemotherapy that was completed in last September. He was admitted with the most recent hospitalization with diarrhea, community-acquired pneumonia, pancytopenia and was noted to have a left basilar pneumonia with sepsis. He was also diagnosed with an encephalopathy. He had acute renal insufficiency. He is also noted to be significantly debilitated. He has been admitted now for acute in-hospital inpatient rehabilitation. He was treated for the severe sepsis in light of the neutropenia with his history of lymphoma. His renal failure was monitored and he has the neuropathy and has a prior history of systemic steroids with prior chemotherapy. PAST MEDICAL HISTORY: Includes hypertension, bilateral knee replacement, GERD, overactive bladder, CHF, lymphoma, hypertension, and hyperlipidemia. HABITS: No history of tobacco abuse, only takes alcohol on special occasions. ALLERGIES: No known drug allergies. SOCIAL HISTORY: Lives in an apartment with his first level. No steps. Did not utilize gait aids. He was not on O2 premorbidly. REVIEW OF SYSTEMS: No current complaints of chest pain, shortness of breath, or abdominal discomfort. He has some lower extremity numbness and discomfort. PHYSICAL EXAMINATION: GENERAL: An 82-year-old white male in no obvious distress. VITAL SIGNS: Last recorded temperature 97.3, pulse 66, respirations 20, and blood pressure 180/90. NEUROLOGIC: The patient is pleasant. There is a definite latency to some of his responses. He can follow 1-step commands without difficulty. HEENT: Facies are symmetric. CHEST: Sounded clear to auscultation. [facility] [address] [place] [address] HISTORY AND PHYSICAL Name: MERY MAYA Room #: 506-1 [facility] IN .R.#: [id number] Admission: 02/15/18 Attend Phys: Walter Castro MD Discharge: Date of : 35 Report #: [id number] CARDIOVASCULAR: Regular rate and rhythm. ABDOMEN: Bowel sounds positive, nontender. GENITOURINARY AND RECTAL: Deferred. EXTREMITIES: He has functional range of motion of both upper extremities without obvious focal weakness. DTRs are 1. In his lower extremity, he has decreased distal sensation to light touch and proprioception. Strength is a grade 4-/5. He had the prior total knee replacement surgery with a well-healed knee incision. He is needing assistance with basic functional mobility and ADL skills with transfers at a contact guard, gait short distance contact guard. He is needing assistance with lower extremity dressing. ASSESSMENT: 1. Multifactorial peripheral neuropathy. He has a baseline idiopathic peripheral neuropathy that may have had some contribution with his noted chemotherapy. He does have decreased distal sensation with decreased proprioception. 2. Encephalopathy. This appears to be multifactorial and metabolic. 3. Sepsis. 4. Left basilar pneumonia. 5. Pancytopenia. 6. Acute renal insufficiency superimposed on chronic kidney disease. 7. Diastolic congestive heart failure. PLAN: The patient is admitted for acute in-hospital inpatient rehabilitation. From a postadmission physician evaluation perspective, there are no relevant changes since the preadmission screening. Please see the above review of prior and current medical and functional conditions and comorbidities. Please see the patient's previous and current functional status. As far as risk of complications, he does have multiple medical comorbidities as noted above. Initial plan of care involves the interdisciplinary acute inpatient rehabilitation program with goal of maximizing his functional independence, so that he can hopefully return back to his prior living situation. Measurable functional goals would be for him to become modified independent with transfers, mobility, ADLs, strength and endurance as well as improvement in cognition, so that he can return back to the home setting. Prognosis is reasonably good with estimated length of stay probably at least the next 7-10 days, pending progress. Potential barriers would include his multiple medical comorbidities and decreased functional status. <ELECTRONICALLY SIGNED> By: Walter Castro MD 02/18/18 1409 0809 0842 Walter Castro MD /[facility]
--- NOTE | ~2018-02-15 | HC ---
[facility] [place] [address] CONSULTATION Name: MERY MAYA Room #: 506-1 ADM IN M.R.#: [id number] Admission: 02/15/18 Attend Phys: Walter Castro MD Discharge: Date of : 35 Report #: [id number] THIS REPORT FOR: //name// CC: Db Duong MD [facility] Walter Sparrow MD REASON FOR CONSULTATION: History of lymphoma. HISTORY OF PRESENT ILLNESS: The patient is an 82-year-old gentleman with a history of bone marrow lymphoma, who was recently admitted for sepsis, who is improving and is now on rehabilitation. He is very tired today since it was early in the day and our interaction was minimal today. His history is notable for recent admission on about 02/09/2018 for sepsis and thought to be a left lower lobe pneumonia. He is completing the Zosyn with another 2 days of antibiotics. At this time, he is at the breakfast table. There does not appear to be any significant health issues, but is very fatigued, tired and slow to answer questions, though he is very pleasant. He does not appear to be in any pain. He does not appear to be short of breath. He does not appear to be complaining of shortness of air. 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 No adenopathy. He began rituximab and Treanda in 04/2017 and his last dose, #6, was given on 09/30/2017. He originally had presented with cytopenias which slightly improved, but it has persisted. We had been giving consideration for a bone marrow. He also had been on erythropoietin 120 mcg monthly to see if this would help. He also has a history of bladder disorder, history of hypertension, hyperlipidemia and iron-deficiency anemia, received INFeD in the past year and polymyalgia rheumatica . Also, history of shingles in the past and also type 2 diabetes. SOCIAL HISTORY: Unchanged. He is retired. MEDICATIONS: At this time currently include temazepam 15 mg at night, melatonin 10 mg at night, trazodone 50 mg p.r.n. at night, vitamin E 400 units daily, valacyclovir 500 mg daily, torsemide 20 daily, potassium chloride has been given on an as needed basis, iron sulfate 325 mg daily, vitamin B12 at 1000 [place] [address] CONSULTATION Name: MERY MAYA Room #: 506-1 ADM IN M.R.#: [id number] Admission: 02/15/18 Attend Phys: Walter Castro MD Discharge: Date of : 35 Report #: [id number], Lipitor 20 daily, amlodipine 5 daily and Zosyn 3.375 IV q.8h. I believe he is also still on carvedilol 6.25 b.i.d., terazosin 5 mg at bedtime, tamsulosin 0.4 at 09:00 at night, gabapentin 300 b.i.d., Tylenol p.r.n. and sennosides p.r.n. PHYSICAL EXAMINATION: GENERAL: The patient appears his stated age. He is an older gentleman, pleasant, but obviously tired this morning. VITAL SIGNS: Height is 5 feet 6 inches, which is 167.6 cm. Weight is 228 pounds, which is 103.8 kilograms. Blood pressure is 149/71, O2 sat 95% on room air, respirations 18, temperature 97.5 and pulse 62. HEENT: Face is symmetrical. MOOD: He is awake, but quite slow to answer because of fatigue. NEUROLOGIC: Face is symmetrical, moving arms and legs. Speech pattern normal, but slow. LUNGS: Clear, symmetric respiration. HEART: Appears to be regular rate. ABDOMEN: Obese. It does not appear to be tender. EXTREMITIES: Without clubbing or cyanosis. SKIN: Intact. LABORATORY DATA: Recent labs include a BUN of 31 and a creatinine of 1.3 yesterday. Iron panel on 02/10/2018 showed probable iron deficient with a percent saturation of 5 and an iron of 8. Hemoglobin is recently 8.3, white count 2, recent ANC had been 1.7 several days ago and platelets have been in the 110 range and improving from admission. Recent imaging included plain films. His last x-ray was about 3 days ago and it showed slight improvement in medial right lung base and persistent left effusion, infiltrate and atelectasis. ASSESSMENT AND PLAN: 1. 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 May consider repeat bone marrow at some point. 2. Persistent cytopenia. Again, when situation improved and pertinent anemia or cytopenias persist, could consider bone marrow biopsy. 3. Hypogammaglobulinemia. Would consider replacement if covered while in rehabilitation, but it may not be and so would probably defer. 4. Possible iron deficiency. Consider iron infusion. 5. Recent sepsis/pneumonia, appears to be resolving, has several more days of Zosyn. 6. Weakness. We will be using rehabilitation services. 7. Hypertension. Amlodipine and other meds. 8. Lipids. Continue statin. 9. Neuropathy, Gabapentin. 10. Diastolic heart failure. Continues Coreg and other meds. [facility] [address] [place] [address] CONSULTATION Name: MERY MAYA Room #: 506-1 ADM IN M.R.#: [id number] Admission: 02/15/18 Attend Phys: Walter Castro MD Discharge: Date of : 35 Report #: [id number] 11. Bladder difficulties. Continues bladder/prostate medications. 12. Chronic kidney disease, stage 3. Creatinine improving. 13. Diarrhea. Monitor. We will follow with you. <ELECTRONICALLY SIGNED> By: Erick Mcdermott MD 02/17/18 1448 0825 1145 Erick Mcdermott MD /nt
--- NOTE | ~2018-02-15 | PLAN ---
[facility] [place] [address] REHAB UNIT PLAN OF CARE Name: MERY MAYA Room #: 506-1 ADM IN M.R.#: [id number] Admission: 02/15/18 Attend Phys: Walter Castro MD Discharge: Date of : 35 Report #: [id number] THIS REPORT FOR: //name// CC: Walter Sparrow DATE OF SERVICE: 02/18/2018 PROGRESS NOTE AND OVERALL PLAN OF CARE The patient was seen back today in followup. He is in no distress. Last recorded temperature is 97.8, pulse 62, respirations 16, blood pressure 155/86. No focal calf swelling. Transfers are max assist. Gait was min assist 15 feet with a front-wheeled walker. In occupational therapy, he is min assist with lower body dressing. In speech therapy, he has mild comprehensive deficits. ASSESSMENT: 1. Multifactorial peripheral neuropathy. 2. Encephalopathy, which appears to be multifactorial and metabolic. 3. Sepsis. 4. Left basilar pneumonia. 5. Pancytopenia. 6. Acute renal insufficiency superimposed on chronic kidney disease. 7. Diastolic congestive heart failure. PLAN: The overall plan of care is based on the preadmission screen, post-admission physician evaluation and information garnered from therapy assessments. 1. Estimated length of stay is probably 10 days to 2 weeks pending progress. 2. Medical prognosis is reasonably good. 3. Anticipated interventions includes the interdisciplinary acute inpatient rehabilitation program with PT, OT and speech, rehabilitation nursing assisting regarding medication management, skin care prophylaxis, bowel and bladder issues and nursing education. construction site manager will be involved as well as the multiple oracle security consultant physicians. 4. Anticipated functional outcomes would be for the patient to be modified independent with transfers, mobility and ADLs ideally at the walker level with improvement of overall cognition, so that he can return back to the home setting. 5. Discharge destination would be back to the apartment with his . 6. Expected therapy by discipline includes PT and OT and speech 1 hour per day [address] [address] REHAB UNIT PLAN OF CARE Name: MERY MAYA Room #: 506-1 ADM IN ..#: [id number] Admission: 02/15/18 Attend Phys: Walter Castro MD Discharge: Date of : 35 Report #: [id number] each five days a week throughout the duration of the acute inpatient rehabilitation stay. <ELECTRONICALLY SIGNED> By: Walter Castro MD 02/21/18 1325 1147 2347 Walter Castro MD /[facility]
[~2018-02-15 12:17] MED LIST changes: +AMLODIPINE BESYL5 M1 PO; +CARVEDILOL3.125 MG PO; +FLOMAX0.4 MG PO; +IRON325 PO; +KLOR-CON 1010 MEQ PO; +VALTREX 500 MG500 MG PO
[2018-02-15 19:40] VITALS: BP 180/90
[2018-02-16 05:18] LABS: HEMATOCRIT 23.8 % (42.0-52.0); HEMOGLOBIN 8.3 gm/dL (14.0-18.0); MCH 33.2 pg (26.0-34.0); MCV 95.1 fL (80.0-100.0); RBC 2.5 mil/uL (4.50-6.00)
[2018-02-16 05:21] LABS: ALBUMIN 2.6 g/dL (3.4-5.0); CALCIUM 8.7 mg/dL (8.5-10.1); CREATININE 1.3 mg/dL (0.7-1.3); PHOSPHORUS 3.8 mg/dL (2.5-4.9)
[2018-02-16 05:25] LABS: POTASSIUM 2.9 mmol/L (3.5-5.1)
[2018-02-16 07:30] VITALS: BP 131/70
[2018-02-16 19:40] VITALS: BP 149/71
[2018-02-17 08:15] VITALS: BP 147/84
[2018-02-17 19:55] VITALS: BP 152/75
[2018-02-18 08:15] VITALS: BP 155/86
[2018-02-18 17:55] VITALS: BP 151/82
[2018-02-18 19:10] VITALS: BP 131/69
[2018-02-19 07:30] VITALS: BP 139/75
[2018-02-19 19:35] VITALS: BP 128/60
[2018-02-20 06:48] LABS: HEMATOCRIT 23.7 % (42.0-52.0); HEMOGLOBIN 8.2 gm/dL (14.0-18.0); MCH 33.5 pg (26.0-34.0); MCHC 34.4 g/dL (28.0-37.0); MCV 97.4 fL (80.0-100.0); RBC 2.44 mil/uL (4.50-6.00); RDW 14.5 % (10.5-14.5); WBC 2.3 thou/uL (4.0-11.0)
[2018-02-20 06:55] LABS: CALCIUM 8.2 mg/dL (8.5-10.1); CREATININE 1.2 mg/dL (0.7-1.3); POTASSIUM 3.2 mmol/L (3.5-5.1)
[2018-02-20 08:00] VITALS: BP 151/67
[2018-02-20 17:47] LABS: MAGNESIUM 1.7 mg/dL (1.8-2.4)
[2018-02-20 17:48] LABS: POTASSIUM 4.2 mmol/L (3.5-5.1)
[2018-02-20 19:35] VITALS: BP 145/74
[2018-02-21 07:27] VITALS: BP 148/68
[2018-02-21 20:11] VITALS: BP 143/64
[2018-02-22 07:01] LABS: HEMATOCRIT 22.2 % (42.0-52.0); HEMOGLOBIN 7.8 gm/dL (14.0-18.0); MCHC 35.3 g/dL (28.0-37.0); MCV 96.5 fL (80.0-100.0); RDW 14.8 % (10.5-14.5); WBC 2.3 thou/uL (4.0-11.0)
[2018-02-22 07:18] LABS: CALCIUM 8.5 mg/dL (8.5-10.1); CREATININE 1.2 mg/dL (0.7-1.3); MAGNESIUM 1.9 mg/dL (1.8-2.4); POTASSIUM 3.3 mmol/L (3.5-5.1)
[2018-02-22 08:00] VITALS: BP 134/70
[2018-02-22 09:04] LABS: ABSOLUTE NEUTROPHILS 1.9 thou/uL (1.4-8.2); PLATELET ESTIMATE DECREASED
[2018-02-22 09:05] LABS: PLATELET COUNT 65 thou/uL (150-400)
[2018-02-22 09:07] LABS: ANISOCYTOSIS SLIGHT
[2018-02-22 19:40] VITALS: BP 156/75
[2018-02-23 07:05] VITALS: BP 134/55
[2018-02-23] MEDS ORDERED: VITAMIN B-12500 MCG PO (09:14)
[2018-02-23] MEDS ORDERED: MELATONIN5 M1 PO (09:14)
[2018-02-23] MEDS ORDERED: CARVEDILOL3.125 MG PO (09:14)
[2018-02-23] MEDS ORDERED: COLACE100 MG PO (09:14)
[2018-02-23] MEDS ORDERED: FLOMAX0.4 MG PO (09:14)
[2018-02-23 10:05] VITALS: BP 134/55
[2018-02-23 10:13] VITALS: BP 134/55
[2018-02-23 12:29] VITALS: BP 134/55
[2018-02-23 12:30] VITALS: BP 134/55
== END 2018-02-23 12:34 | disposition home health service (06) | DRG 70 ==
LOC: ENTRNSPT 02-23 12:25 → EDTRNSPTSTS 02-23 12:29
PROVIDERS: Hospitalist; Nurse Practitioner; Physical Medicine & Rehabilitation
DX: G93.41 Metabolic encephalopathy (principal); A41.9 Sepsis, unspecified organism; J18.1 Lobar pneumonia, unspecified organism; D61.818 Other pancytopenia; I13.0 Hypertensive heart and chronic kidney disease with heart failure and stage 1 through stage 4 chronic kidney disease, or unspecified chronic kidney disease; I50.30 Unspecified diastolic (congestive) heart failure; N17.9 Acute kidney failure, unspecified; D80.3 Selective deficiency of immunoglobulin G [IgG] subclasses; D80.1 Nonfamilial hypogammaglobulinemia; G62.9 Polyneuropathy, unspecified; N28.9 Disorder of kidney and ureter, unspecified; K21.9 Gastro-esophageal reflux disease without esophagitis; E78.5 Hyperlipidemia, unspecified; E87.6 Hypokalemia; R19.7 Diarrhea, unspecified; N18.3 Chronic kidney disease, stage 3 (moderate); G47.00 Insomnia, unspecified; R53.1 Weakness; F43.23 Adjustment disorder with mixed anxiety and depressed mood; R41.0 Disorientation, unspecified; D64.9 Anemia, unspecified; E83.42 Hypomagnesemia; Z96.653 Presence of artificial knee joint, bilateral; Z92.21 Personal history of antineoplastic chemotherapy; Z85.72 Personal history of non-Hodgkin lymphomas
CPT/HCPCS: 10112

== ENCOUNTER → 2020-01-26 | Outpatient (CLI) | payer OTHER, MEDICARE ==
[~2020-01-26] MED LIST changes: +COLACE100 MG PO; +MELATONIN5 M1 PO
== END ==
LOC: SJCVC 12:52
DX: I49.49 Other premature depolarization (principal); E11.22 Type 2 diabetes mellitus with diabetic chronic kidney disease; I13.0 Hypertensive heart and chronic kidney disease with heart failure and stage 1 through stage 4 chronic kidney disease, or unspecified chronic kidney disease; I50.32 Chronic diastolic (congestive) heart failure; N18.2 Chronic kidney disease, stage 2 (mild); E78.5 Hyperlipidemia, unspecified; D63.1 Anemia in chronic kidney disease; Z96.653 Presence of artificial knee joint, bilateral; Z79.899 Other long term (current) drug therapy

== ENCOUNTER → 2020-08-16 | Outpatient (CLI) | payer OTHER, MEDICARE | LOC: SJCVCIMAG 08:49 | PROVIDERS: ATTEND Internal Medicine | DX: I08.1 Rheumatic disorders of both mitral and tricuspid valves (principal); R00.1 Bradycardia, unspecified; E11.22 Type 2 diabetes mellitus with diabetic chronic kidney disease; I13.0 Hypertensive heart and chronic kidney disease with heart failure and stage 1 through stage 4 chronic kidney disease, or unspecified chronic kidney disease; N18.2 Chronic kidney disease, stage 2 (mild); I50.32 Chronic diastolic (congestive) heart failure; D63.1 Anemia in chronic kidney disease; D53.1 Other megaloblastic anemias, not elsewhere classified; E78.5 Hyperlipidemia, unspecified ==

== ENCOUNTER → 2021-02-20 | Outpatient (CLI) | payer OTHER, MEDICARE | LOC: SJCVC 12:57 | PROVIDERS: ATTEND Internal Medicine | DX: R94.31 Abnormal electrocardiogram [ECG] [EKG] (principal); I49.9 Cardiac arrhythmia, unspecified; I13.0 Hypertensive heart and chronic kidney disease with heart failure and stage 1 through stage 4 chronic kidney disease, or unspecified chronic kidney disease; I50.32 Chronic diastolic (congestive) heart failure; E11.22 Type 2 diabetes mellitus with diabetic chronic kidney disease; N18.2 Chronic kidney disease, stage 2 (mild); E78.5 Hyperlipidemia, unspecified; D63.1 Anemia in chronic kidney disease; I25.10 Atherosclerotic heart disease of native coronary artery without angina pectoris; K21.9 Gastro-esophageal reflux disease without esophagitis; Z79.899 Other long term (current) drug therapy ==

== ENCOUNTER → 2021-10-16 | Outpatient (CLI) | payer OTHER, MEDICARE | LOC: SJCVC 13:49 | PROVIDERS: ATTEND Internal Medicine | DX: R94.31 Abnormal electrocardiogram [ECG] [EKG] (principal); I13.0 Hypertensive heart and chronic kidney disease with heart failure and stage 1 through stage 4 chronic kidney disease, or unspecified chronic kidney disease; E11.22 Type 2 diabetes mellitus with diabetic chronic kidney disease; I50.32 Chronic diastolic (congestive) heart failure; N18.2 Chronic kidney disease, stage 2 (mild); E78.5 Hyperlipidemia, unspecified; N40.0 Benign prostatic hyperplasia without lower urinary tract symptoms; K21.9 Gastro-esophageal reflux disease without esophagitis; G62.89 Other specified polyneuropathies; C44.42 Squamous cell carcinoma of skin of scalp and neck; D61.818 Other pancytopenia; C79.89 Secondary malignant neoplasm of other specified sites; C85.10 Unspecified B-cell lymphoma, unspecified site; I25.10 Atherosclerotic heart disease of native coronary artery without angina pectoris; Z85.828 Personal history of other malignant neoplasm of skin; Z79.899 Other long term (current) drug therapy; Z98.890 Other specified postprocedural states; Z95.0 Presence of cardiac pacemaker ==

== ENCOUNTER 2021-10-30 07:01 | Emergency (ER) | payer OTHER, MEDICARE ==
[~2021-10-30] VITALS: Ht 167.6 cm; Wt 90.7 kg
[2021-10-30 08:04] LABS: HEMATOCRIT 34.7 % (42.0-52.0); HEMOGLOBIN 11.5 gm/dL (14.0-18.0); MCH 30.8 pg (26.0-34.0); MCHC 33.2 g/dL (28.0-37.0); PLATELET COUNT 82 thou/uL (150-400); RBC 3.74 mil/uL (4.50-6.00); RDW 14.7 % (10.5-14.5); WBC 2.3 thou/uL (4.0-11.0)
--- NOTE | 2021-10-30 08:32 | EKG ---
[place] [address] [facility] [place] [address] ELECTROCARDIOGRAM REPORT Name: MERY MAYA [id number] Admission: 10/30/21 Attend Phys: Discharge: Date of : 35 Report #: [id number] [facility] ED Test Date: 2021-10-30 Test Time: 08:03:15 Pat Name: MERY MAYA Department: Room: Gender: M Paper Grader: stephane : 1935 Requested By: Tramaine Rodriguez Order Number: [id number] MD: Chris Lopez Measurements Intervals [place] Rate: 76 P: -5 PA: 197 QRS: 5 QRSD: 94 T: 18 QT: 400 QTc: 450 Interpretive Statements Sinus rhythm with PAC's Supraventricular bigeminy Compared to ECG 02/09/2018 18:02:33 No significant change Electronically Signed On 10-30-2021 8:32:38 DETECTIVE LIEUTENANT by Chris Lopez [email or web address] <ELECTRONICALLY SIGNED> By: Chris Lopez MD, [facility] 10/30/21 0832 0803 2 Chris Lopez MD, FACC /EPI
[2021-10-30 08:33] LABS: CREATININE 1.3 mg/dL (0.7-1.3); POTASSIUM 3.9 mmol/L (3.5-5.1)
[2021-10-30 08:39] LABS: ALBUMIN 3.5 g/dL (3.4-5.0); MAGNESIUM 2.2 mg/dL (1.8-2.4); TOTAL BILIRUBIN 0.7 mg/dL (0.2-1.0); TOTAL PROTEIN 6.4 g/dL (6.4-8.2)
[2021-10-30 08:41] LABS: AMYLASE 124 U/L (25-115); LIPASE 177 U/L (73-393)
[2021-10-30 11:27] LABS: ABSOLUTE NEUTROPHILS 0.9 thou/uL (1.4-8.2)
[2021-10-30 11:29] LABS: URINE BILIRUBIN NEGATIVE (Negative); URINE BLOOD NEGATIVE (Negative); URINE CLARITY CLEAR; URINE COLOR YELLOW; URINE GLUCOSE-RANDOM* NEGATIVE (Negative); URINE KETONES 2+ (Negative); URINE LEUKOCYTES-REFLEX NEGATIVE (Negative); URINE NITRITE-REFLEX NEGATIVE (Negative); URINE PROTEIN (DIPSTICK) NEGATIVE (Negative); URINE UROBILINOGEN 0.2 E.U./dl (0.2-1.0)
[2021-10-30 11:37] VITALS: BP 161/71
== END 2021-10-30 11:37 | disposition home or self-care (01) ==
LOC: ER 07:01
PROVIDERS: Emergency Medicine
DX: R19.7 Diarrhea, unspecified (principal); R53.1 Weakness; R93.5 Abnormal findings on diagnostic imaging of other abdominal regions, including retroperitoneum; I13.0 Hypertensive heart and chronic kidney disease with heart failure and stage 1 through stage 4 chronic kidney disease, or unspecified chronic kidney disease; N18.30 Chronic kidney disease, stage 3 unspecified; I50.9 Heart failure, unspecified; K21.9 Gastro-esophageal reflux disease without esophagitis; G62.9 Polyneuropathy, unspecified; Z98.890 Other specified postprocedural states; Z79.899 Other long term (current) drug therapy

== ENCOUNTER 2021-11-29 12:55 | Inpatient (IN) | payer OTHER, MEDICARE ==
[~2021-11-29] VITALS: Ht 182.9 cm; Wt 91.2 kg
--- NOTE | ~2021-11-29 | EMS ---
[address] [address] EMS Patient Care Report Name: MERY MAYA Room #: 170-6 ADM IN M.R.#: [id number] Admission: 11/29/21 Attend Phys: Jose Mackey MD Discharge: Date of : 35 Report #: [id number] THIS REPORT FOR: //name// Report Transmitted: 11/29/2021 14:06 EMS Care Summary [facility] MED-ACT Incident [id number] @ 11/29/2021 12:22 Incident Location [address] [place] [address] Patient MERY MAYA Male, 85 Years 1936-04-13 Patient Address [address] [place] [address] Patient History Congestive Heart Failure (CHF),ST Elevation (STEMI) Myocardial Infarction,Hyperlipidemia,Urinary Tract Infection (UTI),Type 2 Diabetes, Patient Allergies No known allergies, Patient Medications Omeprazole, Gabapentin, Acetaminophen, Simvastatin, Spironolactone, Aspirin, Chief Complaint "He's been on a steady decline." Disposition Transported No Lights/[place] Reason Unconscious/Fainting Transported To [facility] Narrative Arrived on scene to find an 85 y/o male who presented with a decreased LOC, painful responsive, GCS of 9, pale in color, with labored breathing and a weak [address] [address] EMS Patient Care Report Name: MERY MAYA Room #: 170-6 ADM IN ..#: [id number] Admission: 11/29/21 Attend Phys: Jose Mackey MD Discharge: Date of : 35 Report #: [id number] radial pulse. Supplemental [address] via NC running at 3 LPM. RN on scene report that this pt is currently rehabbing at their facility for encephalopathy and that for the past 2 weeks he has been on a "steady decline". Rn reports that the pt is normally confused but that today he is presenting more decreased than normal. RN also reports that the pt has not been eating or drinking and that his urine output is poor. RN reports that this pt was given a litter of NS yesterday the and that he has produced 100 ml of urine in the past 24 hours. RN denied any hypotension noted but did report low 02 saturation into the low 90's to high 80's on room air and that that was why he was receiving supplemental 02. Pt was a poor historian due to his decreased LOC. Pt would only moan and groan occasionally. EMS had difficulty in obtaining a BP but when acquired is showed severe hypotension with a BP of 70/43. Pt was transported to ED for eval and tx with two MICT providers in the back of pt compartment providing care. En route pt was placed on a passive leg lift and given approximately 200 ml of NS. Pt's BP improved and he maintained adequate respiratory rate and 02 saturation in the mid to high 90's. See assessment tab, VS tab and flowchart for further pt care information. Initial Vitals @12:34Glucose: 133, @12:43P: 67,EtCO2: 8, @12:46P: 65,R: 19,BP: 71/47,EtCO2: 17,SpO2: 97, @12:42P: 64,R: 14,EtCO2: 13,SpO2: 97,SD Suspected: false @12:40P: 69,R: 23,EtCO2: 18,SpO2: 96, @12:40P: 66,R: 14,BP: 70/43,GCS: 9,Temp: 97.1F,Glucose: 133,SpO2: 94,Revised Trauma: 9, @12:51P: 66,R: 23,BP: 87/61,GCS: 11,EtCO2: 20,SpO2: 98,Revised Trauma: 10, Impression Altered Mental Status Procedures @PTAOxygen FlowRate: 3 Device: Nasal Cannula (NC) Response: UnchangedSucceeded @12:42 12-Lead ECG @PTAIV Therapy - Saline Lock 200cc (20 ga) Site: Antecubital-Right Response: UnchangedSucceeded @12:50 Saline - 200 Milliliters (ml) - Intravenous (IV) Response: Improved Timeline SOFTWARE SUPPORT REPRESENTATIVE,Oxygen FlowRate: 3 Device: Nasal Cannula (NC) Response: UnchangedSucceeded, [facility] [address] [place] [address] EMS Patient Care Report Name: MERY MAYA Room #: 170-6 ADM IN M.R.#: [id number] Admission: 11/29/21 Attend Phys: Jose Mackey MD Discharge: Date of : 35 Report #: [id number] SOFTWARE SUPPORT REPRESENTATIVE,IV Therapy - Saline Lock 200cc 20 ga Site: Antecubital-Right,Response: UnchangedSucceeded, 12:21,Call Received 12:21,Psap Call 12:22,Dispatched 12:23,En Route 12:29,On Scene 12:31,At Patient 12:34,BP: / M,PULSE: ,RR: R,SPO2: Ox,ETCO2: ,B,PAIN: ,GCS: , 12:40,BP: / M,PULSE: 69,RR: 23 R,SPO2: 96 Ox,ETCO2: 18 ,BG: ,PAIN: ,GCS: , 12:40,BP: 70/43 M,PULSE: 66,RR: 14 R,SPO2: 94 Ox,ETCO2: ,B,PAIN: ,GCS: 9, 12:42,12-Lead ECG, 12:42,BP: / M,PULSE: 64,RR: 14 R,SPO2: 97 Ox,ETCO2: 13 ,BG: ,PAIN: ,GCS: , 12:43,BP: / M,PULSE: 67,RR: R,SPO2: Ox,ETCO2: 8 ,BG: ,PAIN: ,GCS: , 12:46,BP: 71/47 M,PULSE: 65,RR: 19 R,SPO2: 97 Ox,ETCO2: 17 ,BG: ,PAIN: ,GCS: , 12:47,Depart Scene 12:50,Saline - 200 Milliliters (ml) - Intravenous (IV),Response: Improved 12:51,BP: 87/61 M,PULSE: 66,RR: 23 R,SPO2: 98 Ox,ETCO2: 20 ,BG: ,PAIN: ,GCS: 11, 12:53,At Destination 13:10,Call Closed Disclaimer v1.1 Copyright 2021 [employer] This EMS Care Summary contains data elements from the applicable legal record (which may be displayed differently). It is designed to provide pertinent information for the following purposes: continuity of care, clinical quality, and state data reporting. The complete legal record is available to ED staff and administrators of the receiving hospital in [employer]'s Patient Tracker. All data is provided "as is."
[2021-11-29 12:57] VITALS: BP 90/55
[2021-11-29 13:15] LABS: HEMOGLOBIN 9.2 gm/dL (14.0-18.0)
[2021-11-29 13:17] LABS: HEMATOCRIT 27.4 % (42.0-52.0); MCH 30.7 pg (26.0-34.0); MCHC 33.7 g/dL (28.0-37.0); MCV 91.1 fL (80.0-100.0); RBC 3.01 mil/uL (4.50-6.00); RDW 14.9 % (10.5-14.5)
[2021-11-29 13:21] LABS: WBC 1.7 thou/uL (4.0-11.0)
[2021-11-29 13:32] LABS: CALCIUM 8.5 mg/dL (8.5-10.1); CREATININE 3.1 mg/dL (0.7-1.3); POTASSIUM 4.3 mmol/L (3.5-5.1)
[2021-11-29 13:38] LABS: URINE BILIRUBIN 2+ (Negative); URINE BLOOD 3+ (Negative); URINE CLARITY CLEAR; URINE COLOR YELLOW; URINE GLUCOSE-RANDOM* NEGATIVE (Negative); URINE KETONES TRACE (Negative); URINE NITRITE-REFLEX NEGATIVE (Negative); URINE PROTEIN (DIPSTICK) 2+ (Negative); URINE SPECIFIC GRAVITY >= 1.030 (1.005-1.035); URINE UROBILINOGEN 0.2 E.U./dl (0.2-1.0)
[2021-11-29 13:45] LABS: ALBUMIN 1.8 g/dL (3.4-5.0); TOTAL BILIRUBIN 0.7 mg/dL (0.2-1.0); TOTAL PROTEIN 4.9 g/dL (6.4-8.2)
[2021-11-29 13:45] LABS: URINE LEUKOCYTES-REFLEX 2+ (Negative)
[2021-11-29 13:49] LABS: SQUAMOUS 0-3 Few /LPF (0-3); YEAST-REFLEX Present (None Seen)
[2021-11-29 13:50] LABS: BACTERIA-REFLEX >30 Many /HPF (None Seen); CASTS None Seen /LPF (None Seen); CRYSTALS None Seen /LPF (None Seen); URINE WBC-REFLEX >25 Many /HPF (0-5)
[2021-11-29 14:28] LABS: ABSOLUTE NEUTROPHILS 0.2 thou/uL (1.4-8.2); METAMYELOCYTES 4 %
[2021-11-29 14:37] LABS: PLATELET COUNT 36 thou/uL (150-400); PLATELET ESTIMATE MARKEDLY DECREASED
[2021-11-29 14:43] LABS: ANISOCYTOSIS 1+
[2021-11-29 14:44] LABS: TOXIC GRANULATION 2+
[2021-11-30 07:08] VITALS: BP 51/27
[2021-11-30 07:22] VITALS: BP 124/61
--- NOTE | 2021-11-30 10:29 | EKG ---
[address] [place] [address] ELECTROCARDIOGRAM REPORT Name: MERY MAYA Room #: 434-P ADM IN M.R.#: [id number] Admission: 11/29/21 Attend Phys: Jose Mackey MD Discharge: Date of : 35 Report #: [id number] [facility] ED Test Date: 2021-11-29 Test Time: 13:11:09 Pat Name: MERY MAYA Department: Room: 434 Gender: M Casino Change Attendant: MPAASTON : 1935 Requested By: Jamal Rangel Order Number: [id number] MD: Chris Lopez Measurements Intervals [place] Rate: 72 P: 43 NM: 198 QRS: 29 QRSD: 103 T: 238 QT: 524 QTc: 574 Interpretive Statements Sinus rhythm Ventricular premature complex Abnormal R-wave progression, early transition Abnormal T, probable ischemia, widespread Baseline wander in lead(s) III,aVL,aVF Compared to ECG 10/30/2021 08:03:15 Ventricular premature complex(es) now present T-wave abnormality now present Electronically Signed On 11-30-2021 10:29:28 FILTER WASHER by Chris Lopez [email or web address] <ELECTRONICALLY SIGNED> By: Chris Lopez MD, FACC 11/30/21 1029 1311 1311 Chris Lopez MD, FAC /EPI
--- NOTE | 2021-11-30 10:31 | NUR ---
RECIEVED PATIENT FROM ER APPROX 0730. FAMILY AT BEDSIDE. ORIENTED FAMILY TO ROOM, CALL LIGHT. QUESTIONS ANSWERED. PATIENT SOMNOLENT. BREATHING SHALLOW.
--- NOTE | 2021-11-30 17:38 | NUR ---
PATIENT FAMILY AT BEDSIDE. CALLED TO NURSE AND STATED PATIENT "WAS NOT BREATHING'. THIS RN AND ROAD GANG SUPERVISOR ASSESSED HEART AND RESPIRS. PRONOUNCED AT 1625. DR. KOEHLER CALLED. VALUATION MANAGER PAGED. FAMILY AT BEDSIDE.
== END 2021-11-30 16:25 | DRG 871 ==
LOC: ER 12:55 → EROBS 14:09 → 4S 11-30 07:22
PROVIDERS: Emergency Medicine; ADMIT Internal Medicine; ATTEND Internal Medicine
DX: A41.9 Sepsis, unspecified organism (principal); R65.21 Severe sepsis with septic shock; N17.0 Acute kidney failure with tubular necrosis; I13.0 Hypertensive heart and chronic kidney disease with heart failure and stage 1 through stage 4 chronic kidney disease, or unspecified chronic kidney disease; G93.40 Encephalopathy, unspecified; N39.0 Urinary tract infection, site not specified; D61.818 Other pancytopenia; Z96.653 Presence of artificial knee joint, bilateral; K21.9 Gastro-esophageal reflux disease without esophagitis; I50.9 Heart failure, unspecified; E78.5 Hyperlipidemia, unspecified; Z20.822 Contact with and (suspected) exposure to COVID-19; N18.30 Chronic kidney disease, stage 3 unspecified; N40.0 Benign prostatic hyperplasia without lower urinary tract symptoms; Z66 Do not resuscitate; Z85.72 Personal history of non-Hodgkin lymphomas; Z51.5 Encounter for palliative care; Z92.21 Personal history of antineoplastic chemotherapy